=== PATIENT | male | born 1960 | race Two or more races ===

== ENCOUNTER 2024-07-07 16:49 | Inpatient (IN) | payer MEDICAID, SELFPAY ==
[2024-07-07] VITALS (11 sets, daily range): BP systolic 115–155; BP diastolic 63–107; PULSE 95–127; RESP 14–95; TEMP 36.6–37.1; O2SAT 94–98; BMI 21.1
--- NOTE | 2024-07-07 17:05 | EDNOTE_ITS ---
ED GI Bleed RME/HPI General Chief complaint: GI Bleed Stated complaint: RECTAL BLEED Time Seen by Provider: 07/07/24 18:21 Arrival date/time: 07/07/24 16:49 Limitations: no limitations RME / HPI RME / HPI Narrative: DR. WEAVER MAIN ED EVALUATION: 64 year old male with past medical history significant for hepatitis C complicated with liver cirrhosis, history of previous GI bleed in the setting of esophageal varices status post ligation, portal HTN, chronic thrombocytopenia, acute blood loss anemia 2/2 UGIB, gastritis, hemorrhoids, DM2, hypertension, and hyperlipidemia presents to the Emergency Department with complaint of vomiting blood since 4 PM today. Symptoms are severe. No other symptoms reported at this time. Related Data Home Medications ?Medication ?Instructions ?Recorded ?Confirmed metformin 500 mg tablet 500 mg PO BIDWMEAL 05/12/21 05/12/21 sitagliptin phosphate 100 mg 100 mg PO QDAY 05/12/21 0 05/12/21 tablet (Januvia) Previous Rx's ?Medication ?Instructions ?Recorded metoprolol tartrate 25 mg tablet 12.5 mg (1/2 x 25 mg) PO BID #20 04/05/19 tabs ondansetron HCl 4 mg tablet 4 mg PO QID PRN nausea and 04/05/19 (Zofran) vomiting #14 tabs lactulose 10 gram/15 mL oral 20 g (30 mL) PO BID #946 mL 05/16/21 solution gabapentin 300 mg capsule 300 mg PO TID #30 caps 08/31 ciprofloxacin HCl 500 mg tablet 500 mg PO BID #14 tabs 11/30/23 (Cipro) dicyclomine 20 mg tablet 20 mg PO TID PRN abdominal p ain 11/30/23 #20 tabs Allergies Allergy/AdvReac Type Severity Reaction Status Date / Time No Known Allergies Allergy Unknown Verified 07/07/24 16:54 Review of Systems Review of Systems Systems Reviewed: All systems reviewed, normal except as documented Narrative Review of Systems: GEN: No fever, no chills, no weight loss EYES: No discharge, no visual changes, no pain HEENT: No ear pain, no congestion, no sore throat PULM: No shortness of breath, no cough, no congestion CV: No chest pain, no dyspnea on exertion, no palpitations GI: No nausea, + vomiting blood, no diarrhea, no pain, no constipation : No frequency, no urgency and no dysuria MUSC/SKEL: No joint pain, no back pain SKIN: No rash PSYCH: No hallucinations, no depression HEME/LYMPH: No easy bleeding or bruising tendencies NEURO: No weakness, no headache Past Medical History Past Medical History CARDIAC: Positive Hypercholesterolemia and Hypertension GASTROINTESTINAL: Positive Gastrointestinal Disorders, Cirrhosis, Esophageal Varices and Ulcerative Colitis GENITOURINARY: Positive Genitourinary Disorders MUSCULOSKELETAL: Positive Musculoskeletal Disorders and Arthritis ENDOCRINE: Positive Endocrine Disorders and Diabetes Mellitus Type 2 HEMATOLOGIC: Positive Blood Disorders and Anemia Family History FAMILY HISTORY: Positive Family Cardiac Disorders and Family Anesthesia Reaction Surgical History SURGICAL: Positive Abdominal Surgery and Bowel Surgery Social History SMOKING STATUS: Never smoker SECOND HAND EXPOSURE: No SUBSTANCE USE: does not use (Denied) ED Exam General Limitations: Present no limitations General appearance: Present alert and in no apparent distress Head Head exam: Present atraumatic, normocephalic and normal inspection Eye Eye exam: Present normal appearance, PERRL and EOMI ENT ENT exam: Present normal exam, normal oropharynx and mucous membranes moist Neck Neck exam: Present normal inspection, full ROM and trachea midline Chest Chest inspection: Present normal inspection and symmetric chest wall rise Respiratory Respiratory exam: Present normal lung sounds bilaterally Cardiovascular Cardiovascular exam: Present regular rate, normal rhythm and normal heart sounds Abdominal Exam Abdominal exam: Present soft, normal bowel sounds and scar (vertical scar in the mid abdomen) Extremities Exam Extremities exam: Present normal inspection and full ROM Back Exam Back exam: Present normal inspection and full ROM Neurological Exam Neurological exam: Present alert, oriented X3 and CN II-XII intact Psychiatric Psychiatric exam: Present normal affect and normal mood Skin Skin exam: Present warm, dry, intact and normal color Course Quality Measures none Orders Category Date Time Status Bedside Blood Glucose Q6HR Care 07/07/24 19:[address] Screening NOW Care 07/07/24 17:09 Active Geothermal Electrical Engineer STAT Care 07/07/24 17:06 Active Continuous Pulse Oximetry STAT Care 07/07/24 17:07 Completed EKG (ED ONLY) *Do not use* NOW Care 07/07/24 17:42 Completed Insert IV STAT Care 07/07/24 17:06 Active Insert NG / OG tube NOW Care 07/07/24 17:05 Active NPO NOW Care 07/07/24 20:37 Active NPO STAT Care 07/07/24 17:07 Active Occult Blood,Stool (Nursing) NEEDED Care 07/07/24 17:05 Active Orthostatic Vitals NOW Care 07/07/24 17:05 Active Transfuse,blood/blood products NEEDED Care 07/07/24 17:10 Active Transfuse,blood/blood products NOW Care 07/07/24 19:51 Active Urinary Catheter STAT Care 07/07/24 17:06 Active Vital Signs, Non-Routine Q30M Care 07/07/24 17:15 Ordered Consult to Gastroenterology Stat Cons 07/07/24 17:09 Ordered Diet NPO (NOW) Diet 07/07/24 20:[address] abdomen pelvis wo/w con Stat Exams 07/07/24 17:09 Completed CXR [XR chest 1V post procedure] Stat Exams 07/07/24 18:29 Completed EKG (ED Only) Stat Exams 07/07/24 17:42 Draft Ammonia Stat Lab 07/07/24 17:20 Completed Amylase Stat Lab 07/07/24 17:20 Completed Arterial Blood Gas Stat Lab 07/07/24 17:40 Completed CBC Stat Lab 07/07/24 17:20 Completed Comprehensive Metabolic Panel Stat Lab 07/07/24 17:20 Completed Lipase Stat Lab 07/07/24 17:20 Completed Magnesium Stat Lab 07/07/24 17:20 Completed Partial Thromboplastin Time Stat Lab 07/07/24 17:20 Completed Prothrombin Time with INR Stat Lab 07/07/24 17:20 Completed Red Blood Cells Stat Lab 07/07/24 17:20 Completed Troponin I Stat Lab 07/07/24 17:20 Completed Type and Screen Stat Lab 07/07/24 17:20 Completed Urinalysis Stat Lab 07/07/24 19:13 Completed Dextrose 50% Syr [D50w Syringe Abboject] Med 07/07/24 19:40 Active 25 ml IV Q15MIN PRN Dextrose 50% Syr [D50w Syringe Abboject] Med 07/07/24 19:40 Active 50 ml IV Q15MIN PRN Famotidine Inj [Pepcid Inj] Med 07/07/24 17:05 Discontinued 20 mg IV X1 ONE Folic Acid Inj Med 07/07/24 20:25 Discontinued 1 mg IVP X1 ONE Glucagon Inj Med 07/07/24 19:40 Active 1 mg IM Q15MIN PRN HYDROmorphone INJ [Dilaudid Inj] Med 07/07/24 18:14 Discontinued 0.5 mg IVP X1 ONE INSULIN LISPRO (AdmeLOG) [HumaLOG] Med 07/07/24 19:45 Active See Protocol SC Q6H Magnesium Sulfate 2 GM Ivpb [Magnesium Sulfate Ivpb] Med 07/07/24 19:25 Discontinued 2 gm in 50 ml IV X1 Octreotide Acet Inj [SandoSTATIN Inj] Med 07/07/24 17:05 Discontinued 50 mcg IV X1 ONE Ondansetron Inj [Zofran Inj] Med 07/07/24 17:13 Discontinued 4 mg IV X1 ONE Pantoprazole Inj [Protonix Inj] Med 07/07/24 17:05 Discontinued 80 mg IVP X1 ONE Phytonadione Inj [Vitamin K Inj] Med 07/07/24 17:05 Discontinued 10 mg IV X1 ONE Phytonadione Inj [Vitamin K Inj] 10 mg Med 07/07/24 17:30 Discontinued Sodium Chloride 0.9% [Ns] 50 ml IV X1 Sodium Chloride 0.9% 1000 ml [Ns] 1,000 ml Med 07/07/24 17:05 Discontinued IV 100 mls/hr Sodium Chloride 0.9% [Ns] 100 ml Med 07/07/24 17:13 Active Octreotide Acet Inj [SandoSTATIN Inj] 1,000 mcg IV 50 mcg/hr Thiamine Inj [Vitamin B-1 Inj] Med 07/07/24 20:25 Discontinued 100 mg IVP X1 ONE cefTRIAXone [Rocephin] 2 gm Med 07/07/24 17:15 Discontinued SODIUM CHLORIDE 0.9% (Popper) [Ns 0.9% (P)] 50 ml IV X1 Reevaluation(s) Reevaluation #1: Patient stable now and not vomiting blood at this time. Time: 17:30 Vital Signs Vital signs: Vital Signs Temperature 98.3 F 07/07/24 17:05 Pulse Rate 127 H 07/07/24 17:05 Respiratory Rate 19 07/07/24 17:05 Blood Pressure 155/107 H 07/07/24 17:05 Pulse Oximetry (%) 94 L 07/07/24 17:05 Oxygen Delivery Method Room Air 07/07/24 17:05 GI Bleed MDM Narrative MDM Narrative:: I, Melissa Hill am scribing for and in the presence of Dr. Weaver. Patient data External records reviewed:: [facility] previous records (Reviewed last admission discharge dated 05/16/21, patient admitted for the following: Acute gastrointestinal bleeding) Clinical information provided by:: patient Social determinants that could affect healthcare access:: none (denies) Patient has the following chronic illnesses:: Hepatitis C complicated with liver cirrhosis, history of previous GI bleed in the setting of esophageal varices status post ligation, portal HTN, chronic thrombocytopenia, acute blood loss anemia 2/2 UGIB, gastritis, hemorrhoids, DM2, hypertension, and hyperlipidemia. How is presenting disease/condition affected by chronic disease/condition?: caused by Evaluation data The following diagnostics were reviewed and interpreted by me:: lab results and radiology exam(s) Lab and/or radiology exams considered but not ordered:: none Interpretation Summary: Pending diagnostic tests. Medications / Prescriptions Medications or Prescriptions considered but not ordered:: none Medication administrations:: Medication Administration History Acetaminophen (Acetaminophen 325 Mg Tablet) 650 mg PO Q6H PRN PRN Reason: PAIN OR FEVER > 101 Stop: 08/06/24 21:48 Dextrose (Dextrose 50%-Water Inj 50 Ml Syringe) 25 ml IV Q15MIN PRN PRN Reason: BG 50-70 responsive npo pt Stop: 08/06/24 19:39 Dextrose (Dextrose 50%-Water Inj 50 Ml Syringe) 50 ml IV Q15MIN PRN PRN Reason: BG <50 OR BG <70 & pt unresponsive Stop: 08/06/24 19:39 Dextrose (Dextrose 50%-Water Inj 50 Ml Syringe) 25 ml IV Q15MIN PRN PRN Reason: BG 50-70 responsive npo pt Stop: 08/06/24 21:48 Dextrose (Dextrose 50%-Water Inj 50 Ml Syringe) 50 ml IV Q15MIN PRN PRN Reason: BG <50 OR BG <70 & pt unresponsive Stop: 08/06/24 21:48 Glucagon (Glucagon Inj 1 Mg Vial) 1 mg IM Q15MIN PRN PRN Reason: BG <70, and no IV access Glucagon (Glucagon Inj 1 Mg Vial) 1 mg IM Q15MIN PRN PRN Reason: BG <70, and no IV access Octreotide Acetate 1,000 mcg/ (Sodium Chloride) 102 mls @ 5.1 mls/hr IV .Q20H ONE; Protocol Stop: 07/08/24 13:12 Last Admin: 07/07/24 17:30 Dose: 50 mcg/hr, 5.1 mls/hr Documented By: ALEXANDREA Insulin Human Lispro (Insulin Lispro (Admelog) 1 Unit/0.01 Ml Unit) 0 unit SC Q6H JEAN; Protocol Stop: 08/06/24 19:44 Last Admin: 07/07/24 20:07 Dose: 2 unit Documented By: ANAYA Co-signed By: BD Ondansetron HCl (Ondansetron Inj 2 Mg/Ml Inj 2 Ml) 4 mg IV Q6H PRN; Protocol PRN Reason: NAUSEA OR VOMITING Stop: 08/06/24 21:48 Pantoprazole Sodium (Pantoprazole Inj 40 Mg Vial) 40 mg IVP BID JEAN Stop: 08/06/24 21:59 Last Admin: 07/08/24 00:00 Dose: 40 mg Documented By: CM Discontinued Medications Famotidine (Famotidine Inj 10 Mg/Ml Vial 2 Ml) 20 mg IV X1 ONE Stop: 07/07/24 17:06 Last Admin: 07/07/24 17:26 Dose: 20 mg Documented By: ALEXANDREA Folic Acid (Folic Acid Inj 1 Mg/0.2 Ml) 1 mg IVP X1 ONE Stop: 07/07/24 20:26 Last Admin: 07/07/24 20:57 Dose: 1 mg Documented By: ANAYA Hydromorphone HCl (Hydromorphone Inj 2 Mg/Ml Vial) 0.5 mg IVP X1 ONE Stop: 07/07/24 18:15 Last Admin: 07/07/24 18:42 Dose: 0.5 mg Documented By: RICARDO Sodium Chloride (Ns) 1,000 mls @ 100 mls/hr IV .Q10H ONE Stop: 07/08/24 03:04 Last Admin: 07/07/24 17:34 Dose: 100 mls/hr Documented By: ALEXANDREA Ceftriaxone Sodium 2 gm/ (Sodium Chloride) 50 mls @ 100 mls/hr IV X1 ONE Stop: 07/07/24 17:44 Last Infusion: 07/07/24 18:10 Dose: Infused Documented By: Admin: 07/07/24 17:34 Dose: 100 mls/hr Documented By: ALEXANDREA Phytonadione 10 mg/ Sodium (Chloride) 51 mls @ 153 mls/hr IV X1 ONE Stop: 07/07/24 17:49 Last Infusion: 07/07/24 19:07 Dose: Infused Documented By: Admin: 07/07/24 18:42 Dose: 153 mls/hr Documented By: RD Magnesium Sulfate (Magnesium Sulfate Ivpb) 2 gm in 50 mls @ 25 mls/hr IV X1 ONE Stop: 07/07/24 21:24 Last Infusion: 07/07/24 22:07 Dose: Infused Documented By: Admin: 07/07/24 20:07 Dose: 25 mls/hr Documented By: EF Octreotide Acetate (Octreotide Acet Inj 50 Mcg/Ml Vial) 50 mcg IV X1 ONE Stop: 07/07/24 17:06 Last Admin: 07/07/24 17:29 Dose: 50 mcg Documented By: GM Ondansetron HCl (Ondansetron Inj 2 Mg/Ml Inj 2 Ml) 4 mg IV X1 ONE; Protocol Stop: 07/07/24 17:14 Last Admin: 07/07/24 17:22 Dose: 4 mg Documented By: GM Pantoprazole Sodium (Pantoprazole Inj 40 Mg Vial) 80 mg IVP X1 ONE Stop: 07/07/24 17:06 Last Admin: 07/07/24 17:28 Dose: 80 mg Documented By: GM Phytonadione (Phytonadione Inj 10 Mg/Ml Amp) 10 mg IV X1 ONE Stop: 07/07/24 17:06 Last Admin: 07/07/24 17:30 Dose: 10 mg Documented By: GM Thiamine HCl (Thiamine Inj 100 Mg/Ml Vial 2 Ml) 100 mg IVP X1 ONE Stop: 07/07/24 20:26 Last Admin: 07/07/24 20:57 Dose: 100 mg Documented By: EF see above if any Consultations Consultation(s) initiated? (list below): No Diagnosis GI bleed differential diagnosis: esophageal varices, gastritis, Upper gastrointestinal hemorrhage and other (gastritis, peptic ulcer disease) Most likely diagnosis given after review of the tests above:: No official diagnoses at this time, still pending diagnostic tests. Patient signout to the night order selector provider. Admission Indicated Admission indicated?: indicated Explain why admission is indicated or not indicated:: No final disposition plan at this time, still pending diagnostic tests. Patient signout to the night order selector provider. Admission Request Was there a request for admission?: No Disposition Plan Disposition Plan: other (specify) (Patient signout to the night order selector provider. ) Discharge Plan Plan Patient Disposition: Admit Acute Care w/in Hospital Problem List Clinical Impression: Hematemesis, Cirrhosis, Bleeding esophageal varices, Hyperammonemia
--- NOTE | 2024-07-07 17:09 | XR_ITS ---
Examination: CT abdomen, without intravenous contrast. CT pelvis, without intravenous contrast. CT abdomen, with intravenous contrast. CT pelvis, with intravenous contrast. 2-D sagittal coronal reconstructions. Date and time of exam:July 07, 2024, 1942 hours Comparison November 30, 2023 INDICATIONS: Coughing up blood today rectal bleeding CTDI: vol (mGy) 18.8 DLP: (mGycm) 817 Technique: Multiple 3.0 axial images of the abdomen and pelvis without intravenous contrast, 3.0 mm slice thickness. Multiple 3.0 postcontrast images abdomen and pelvis also obtained, post intravenous injection 60 cc Isovue 370 2-D sagittal and coronal reconstructions. Low dose protocols were performed. One or more of the following dose reduction techniques were used; automated exposure control, adjustment of the mA and/or KV according to patient size, use of iterative reconstruction technique. Findings: Esophageal varices Blebs in the lower lung zone with dilated bronchi Cirrhosis, low-density areas in the liver are again depicted, the largest in the right lobe 21 mm Significant splenomegaly Tiny calcification in the gallbladder wall Gastric mucosal thickening Perigastric varices Mild ascites No hydronephrosis Periaortic and mesenteric lymphadenopathy Normal appendix No bowel obstruction Diffuse thickening colonic wall and diffuse thickening small bowel loops No bladder mass Fat-containing inguinal hernias Prominent osteopenia IMPRESSION: Cirrhosis Mild ascites Significant splenomegaly Esophageal and perigastric varices Recommend hepatobiliary sonography follow-up Gastritis pattern Hepatic colopathy, enteropathy
[2024-07-07] MEDS: ONDANSETRON INJ 2 MG/ML INJ 2 ML 4 MG IV (17:22)
[2024-07-07] MEDS: FAMOTIDINE INJ 10 MG/ML VIAL 2 ML 20 MG IV (17:26)
[2024-07-07] MEDS: PANTOPRAZOLE INJ 40 MG VIAL 80 MG IVP (17:28)
[2024-07-07] MEDS: OCTREOTIDE ACET INJ 50 mCg/ML VIAL IV (17:29)
[2024-07-07] MEDS: PHYTONADIONE INJ 10 MG/ML AMP IV (17:30)
[2024-07-07] MEDS: OCTREOTIDE ACET INJ 1,000 MCG in SODIUM CHLORIDE 0.9% 100 ML 5.1 MCG IV (17:30)
[2024-07-07] MEDS: SODIUM CHLORIDE 0.9% 1000 ML 1,000 ML 100 ML IV (17:34)
[2024-07-07] MEDS: cefTRIAXone 2 GM in SODIUM CHLORIDE 0.9% (Popper) 50 ML IV (17:34)
--- NOTE | 2024-07-07 17:42 | EKG_ITS ---
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
[2024-07-07 17:46] LABS: Basophils % (Auto) 0 % (0-2.5); Eosinophils # (Auto) 0.1 Thou/mm3 (0.0-0.5); Eosinophils % (Auto) 1 % (0-10); Hemoglobin 11.3 g/dL (13.5-16.0); Immature Granulocytes % (Auto) 0 % (0-0); Immature Granulocytes Auto 0.03 Thou/mm3 (0.00-0.00); Lymphocytes % (Auto) 19 % (10-50); Mean Corpuscular HGB Conc 35.3 g/dl (31.0-37.0); Mean Corpuscular Hemoglobin 31.5 pg (25.0-35.0); Mean Corpuscular Volume 89 fL (80-100); Monocytes # (Auto) 0.8 Thou/mm3 (0.0-0.8); Monocytes % (Auto) 8 % (0-12); Neutrophils # (Auto) 7.5 Thou/mm3 (1.8-7.7); Neutrophils % (Auto) 72 % (37-80); Nucleated Red Blood Cell % 0 /100 WBC (0); Platelet Count 80 Thou/mm3 (140-440); RDW Standard Deviation 42.4 fL (35.1-43.9); Red Blood Count 3.59 Miln/mm3 (4.50-5.90); White Blood Count 10.4 Thou/mm3 (3.8-10.6)
[2024-07-07 17:47] LABS: Base Excess 0 (-3-3); HCO3 25 mEq/L (20-26); Inspired Oxygen, FIO2 21 %; O2 Saturation 96 % (91-98); PCO2 39 mmHg (32.0-48.0); PO2 75 mmHg (83-108)
[2024-07-07 17:48] LABS: Allen Test Performed/OK; Puncture Site Left Radial
[2024-07-07 18:03] LABS: INR 1.3 (0.9-1.3); Partial Thromboplastin Time 25.2 Seconds (22.0-36.0); Prothrombin Time 13.6 Seconds (9.0-12.2)
[2024-07-07 18:05] LABS: Alanine Aminotransferase 60 U/L (10-49); Albumin, Serum 3.4 gm/dL (3.4-4.8); Albumin/Globulin Ratio 0.9 (1.2-2.2); Alkaline Phosphatase 163 U/L (46-116); Ammonia 135 uMol/L (11-32); Amylase 269 U/L (30-118); Anion Gap 9 (7-16); Aspartate Amino Transferase 66 U/L (0-34); BUN/Creatinine Ratio 54 Ratio (12-20); Bilirubin,Total 1.2 mg/dL (0.3-1.2); Blood Urea Nitrogen 43 mg/dL (9-23); Calcium 8.2 mg/dL (8.3-10.6); Calcium (Corrected) 8.7 mg/dL (8.5-10.1); Carbon Dioxide 22.8 mMol/L (20.0-31.0); Chloride 103 mMol/L (98-107); Creatinine (Component) 0.8 mg/dL (0.6-1.3); Globulin 3.6 gm/dL (2.3-3.5); Glucose 277 mg/dL (74-106); Lipase 34 U/L (12-53); Magnesium 1.5 mg/dL (1.6-2.6); Osmolality,Calculated 290 (275-295); Potassium 4.5 mMol/L (3.4-5.1); Sodium 135 mMol/L (136-145); Troponin I < 0.002 ng/mL (0.0-0.045); eGFR > 60 See Note
--- NOTE | 2024-07-07 18:18 | EDNOTE_ITS ---
Emergency Room Addendum Addendum Narrative: 1800: Care assumed from Dr. Weaver the previous shift emergency physician. Past medical, surgical, social and family history reviewed. Vitals and home medications reviewed. Results and treatment plan discussed. I will assume the care of the patient at this time and will follow the patient, pending CT abdomen pelvis and work-up. Please refer to the emergency department record for history and examination from initial visit. EKG done at 1748, sinus tachycardia, rate of 116, normal axis, no ectopy, no acute ischemia, according to my interpretation. Post procedure (NG tube) CXR ordered. See Dr. Hernandez's addendum for the patient's history. CXR shows normal cardiac silhouette, normal sharp diaphragmatic edge, no infiltrates, normal costophrenic angles, NG tube in place, according to my interpretation. 2034: Dr. Hernandez, resident physician, discussed case with Dr. Rivera from Hospitalist service regarding admission. Discussed patients ED course, exam findings, labs, and radiology results. The Hospitalist agrees to accept the patient for admission. 2038: Dr. Hernandez discussed case with Dr. Sotomayor from GI regarding consultation. Discussed patients ED course, exam findings, labs, and radiology results. Agrees to consult. RADIOLOGY RESULTS: [facility] Report Signed Patient: YAYA JOHNSON Record#: [id number] Birthdate: 1960 Age/Sex: 64 / M Location: [facility] Attending Dr: Ordering Physician: Greg Leigh MD Date of Service: 07/07/24 Procedure(s): XR chest 1V post procedure Accession Number(s): [id number] cc: Sergey Simon MD; NO PRIMARY/FAMILY,PHYSICIAN; Greg Leigh MD~ Examination: AP chest single view TECHNIQUE: AP portable sitting chest single view Standing time: July 07, 2024 1844 hours INDICATIONS: Post orogastric tube placement. FINDINGS: Orogastric tube sidehole at the GE junction Normal heart size. Lungs are clear. IMPRESSION: Advance the orogastric tube 5 cm Dictated By: Sergey Simon MD Signed By: <Electronically signed by Sergey Simon MD in OV> 07/07/24 1858 [facility] Report Signed Patient: YAYA JOHNSON Record#: [id number] Birthdate: 1960 Age/Sex: 64 / M Location: [facility] Attending Dr: Ordering Physician: Dasia Weaver MD Date of Service: 07/07/24 Procedure(s): CT abdomen pelvis wo/w con Accession Number(s): [id number] cc: Dasia Weaver MD; Sergey Simon MD; NO PRIMARY/FAMILY,PHYSICIAN~ Examination: CT abdomen, without intravenous contrast. CT pelvis, without intravenous contrast. CT abdomen, with intravenous contrast. CT pelvis, with intravenous contrast. 2-D sagittal coronal reconstructions. Date and time of exam:July 07, 2024, 1942 hours Comparison November 30, 2023 INDICATIONS: Coughing up blood today rectal bleeding CTDI: vol (mGy) 18.8 DLP: (mGycm) 817 Technique: Multiple 3.0 axial images of the abdomen and pelvis without intravenous contrast, 3.0 mm slice thickness. Multiple 3.0 postcontrast images abdomen and pelvis also obtained, post intravenous injection 60 cc Isovue 370 2-D sagittal and coronal reconstructions. Low dose protocols were performed. One or more of the following dose reduction techniques were used; automated exposure control, adjustment of the mA and/or KV according to patient size, use of iterative reconstruction technique. Findings: Esophageal varices Blebs in the lower lung zone with dilated bronchi Cirrhosis, low-density areas in the liver are again depicted, the largest in the right lobe 21 mm Significant splenomegaly Tiny calcification in the gallbladder wall Gastric mucosal thickening Perigastric varices Mild ascites No hydronephrosis Periaortic and mesenteric lymphadenopathy Normal appendix No bowel obstruction Diffuse thickening colonic wall and diffuse thickening small bowel loops No bladder mass Fat-containing inguinal hernias Prominent osteopenia IMPRESSION: Cirrhosis Mild ascites Significant splenomegaly Esophageal and perigastric varices Recommend hepatobiliary sonography follow-up Gastritis pattern Hepatic colopathy, enteropathy Dictated By: Sergey Simon MD Signed By: <Electronically signed by Sergey Simon MD in OV> 07/07/242024
--- NOTE | 2024-07-07 18:29 | XR_ITS ---
Examination: AP chest single view TECHNIQUE: AP portable sitting chest single view Standing time: July 07, 2024 1844 hours INDICATIONS: Post orogastric tube placement. FINDINGS: Orogastric tube sidehole at the GE junction Normal heart size. Lungs are clear. IMPRESSION: Advance the orogastric tube 5 cm
[2024-07-07] MEDS: HYDROmorphone INJ 2 MG/ML VIAL 0.5 MG IVP (18:42)
[2024-07-07] MEDS: PHYTONADIONE INJ 10 MG in SODIUM CHLORIDE 0.9% 50 ML 153 MG IV (18:42)
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
[2024-07-07 19:42] LABS: Collection Type, Urine Catheter; WBC,Urine 0 /hpf (0-5)
[2024-07-07] MEDS: INSULIN LISPRO (AdmeLOG) 1 UNIT/0.01 ML UNIT SC (20:07)
[2024-07-07] MEDS: Magnesium Sulfate 2 GM Ivpb 2 GM/50 ML BAG IV (20:07)
[2024-07-07 20:15] LABS: Bilirubin,Urine Negative (Negative); Blood,Urine Negative (Negative); Clarity,Urine Clear (Clear/Hazy); Color,Urine Lt-Yellow (Lt Yel-Yel); Glucose, Urine 4+ (Negative); Ketones,Urine 1+ (Negative); Leukocyte Esterase,Urine Negative (Negative); Nitrite,Urine Negative (Negative); Protein,Urine Negative (Neg - Trace); RBC,Urine 4 /hpf (0-3); Specific Gravity,Urine 1.027 (1.001-1.035); Squamous Epithelial Cell,Urine < 1 /hpf (0-5); Urobilinogen,Urine Negative mg/dL (0.0-1.0)
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
[2024-07-07] MEDS: FOLIC ACID INJ 1 MG/0.2 ML IVP (20:57)
[2024-07-07] MEDS: THIAMINE INJ 100 MG/ML VIAL 2 ML IVP (20:57)
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
--- NOTE | 2024-07-07 23:50 | PD.IMCONS ---
HPI Data of Consult Requesting Physician: Lawrence Rivera MD Primary Care Provider: Physician No Primary/Family Consult Narrative Reason for consult: Melena, hematochezia History of present illness: 64 years of male evaluated at the request of the ER physician team for clinical presentation melena and hematochezia Patient does have a history of alcohol consumption in the past cc:: cc: Lawrence Rivera MD Review of Systems Review of Systems Systems Reviewed: All systems reviewed, normal except as documented Past Medical History Surgical History OTHER SURGICAL HX: Diabetes mellitus type 2 Meds Home Medications and Allergies Home Medications ?Medication ?Instructions ?Recorded ?Confirmed ?Type metformin 500 mg tablet 500 mg PO BIDWMEAL 05/12/21 07/08/24 History sitagliptin phosphate 100 mg 100 mg PO QDAY 05/12/21 07/08/24 History tablet (Januvia) diclofenac sodium 75 mg 75 mg PO Q12H PRN pain 07/08/24 07/08/24 History tablet,delayed release pantoprazole 40 mg tablet,delayed 40 mg PO QDAY 07/08/24 07/08/24 History release Allergies Allergy/AdvReac Type Severity Reaction Status Date / Time No Known Allergies Allergy Unknown Verified 07/07/24 16:54 Exam Vital Signs Temp Pulse Resp BP Pulse Ox O2 Del Method 98.3 F 99 17 118/78 96 Room Air 07/07/24 20:52 07/07/24 22:19 07/07/24 22:19 07/07/24 22:19 07/07/24 22:19 07/07/24 22:19 Constitutional Comments: Alert oriented Persian-speaking Routine Respiratory Exam Comments: Normal to auscultation Routine Abdominal Exam Comments: Soft nontender Results Labs 07/08/24 11:55 07/08/24 05:21 Labs: Short CBC 07/07/24 Range/Units 17:20 WBC 10.4 (3.8-10.6) Thou/mm3 Hgb 11.3 L (13.5-16.0) g/dL Hct 32.0 L (41.0-53.0) % Plt Count 80 L (140-440) Thou/mm3 BMP 07/07/24 17:20 Sodium 135 L Potassium 4.5 Chloride 103 Carbon Dioxide 22.8 BUN 43 H Creatinine 0.8 Glucose 277 H Calcium 8.2 L Cardiac Enzymes 07/07/24 Range/Units 17:20 Troponin I < 0.002 (0.0-0.045) ng/mL Liver Function 07/07/24 Range/Units 17:20 Total Bilirubin 1.2 (0.3-1.2) mg/dL AST 66 H (0-34) U/L ALT 60 H (10-49) U/L Alkaline Phosphatase 163 H (46-116) U/L Albumin 3.4 (3.4-4.8) gm/dL Urine 07/07/24 Range/Units 19:13 Urine Color Lt-Yellow (Lt Yel-Yel) Urine Clarity Clear (Clear/Hazy) Urine pH 6.0 (5.0-7.0) Ur Specific [place] 1.027 (1.001-1.035) Urine Protein Negative (Neg - Trace) Urine Glucose (UA) 4+ A (Negative) ABG Interpretation ABG results: 07/07/24 17:40 ABG pH 7.40 ABG pCO2 39 ABG pO2 75 L ABG HCO3 25 ABG O2 Saturation 96 ABG Base Excess 0 Assessment and Plan Additional Assessment & Plan Additional Plan: # Acute GI bleed in the setting of melena and hematochezia with backdrop of chronic liver disease secondary to previous consumption of alcohal Plan Serial CBC IV Protonix Octreotide 50 mcg IV push loading dose and then 50 mcg/h Consent obtained for fiberoptic esophagogastroduodenoscopy with possible therapeutic intervention possible biopsy under intravenous moderate sedation Thank you very much for the opportunity to participate in the care of this patient
[2024-07-08] VITALS (19 sets, daily range): BP systolic 106–152; BP diastolic 62–96; PULSE 66–981; RESP 12–96; TEMP 36.3–37.3; O2SAT 93–99; BMI 23.3
[2024-07-08 00:57] LABS: Basophils % (Auto) 0 % (0-2.5); Eosinophils % (Auto) 0 % (0-10); Hematocrit 31.6 % (41.0-53.0); Hemoglobin 11.3 g/dL (13.5-16.0); Immature Granulocytes % (Auto) 0 % (0-0); Immature Granulocytes Auto 0.04 Thou/mm3 (0.00-0.00); Lymphocytes # (Auto) 0.8 Thou/mm3 (1.0-4.8); Lymphocytes % (Auto) 8 % (10-50); Mean Corpuscular HGB Conc 35.8 g/dl (31.0-37.0); Mean Corpuscular Hemoglobin 31.5 pg (25.0-35.0); Mean Corpuscular Volume 88 fL (80-100); Monocytes % (Auto) 10 % (0-12); Neutrophils # (Auto) 8.1 Thou/mm3 (1.8-7.7); Neutrophils % (Auto) 81 % (37-80); Nucleated Red Blood Cell % 0 /100 WBC (0); RDW Standard Deviation 42.1 fL (35.1-43.9); Red Blood Count 3.59 Miln/mm3 (4.50-5.90)
[2024-07-08 01:28] LABS: Platelet Count 50 Thou/mm3 (140-440)
[2024-07-08 01:49] LABS: Slide Review Platelets confirmed
--- NOTE | 2024-07-08 05:34 | PC.NURSE ---
Notified Quresh that pt refusing NG tube and would like to have it taken out.
[2024-07-08 06:11] LABS: Basophils % (Auto) 0 % (0-2.5); Eosinophils % (Auto) 0 % (0-10); Hematocrit 29.3 % (41.0-53.0); Hemoglobin 10.6 g/dL (13.5-16.0); Immature Granulocytes % (Auto) 0 % (0-0); Immature Granulocytes Auto 0.03 Thou/mm3 (0.00-0.00); Lymphocytes # (Auto) 0.9 Thou/mm3 (1.0-4.8); Lymphocytes % (Auto) 11 % (10-50); Mean Corpuscular HGB Conc 36.2 g/dl (31.0-37.0); Mean Corpuscular Volume 89 fL (80-100); Monocytes # (Auto) 0.7 Thou/mm3 (0.0-0.8); Monocytes % (Auto) 9 % (0-12); Neutrophils # (Auto) 6.6 Thou/mm3 (1.8-7.7); Neutrophils % (Auto) 80 % (37-80); Nucleated Red Blood Cell % 0 /100 WBC (0); RDW Standard Deviation 43.5 fL (35.1-43.9); Red Blood Count 3.31 Miln/mm3 (4.50-5.90); White Blood Count 8.3 Thou/mm3 (3.8-10.6)
[2024-07-08 06:16] LABS: Platelet Count 48 Thou/mm3 (140-440)
[2024-07-08 06:18] LABS: INR 1.2 (0.9-1.3)
[2024-07-08 06:28] LABS: Alanine Aminotransferase 56 U/L (10-49); Albumin, Serum 2.9 gm/dL (3.4-4.8); Alkaline Phosphatase 113 U/L (46-116); Anion Gap 9 (7-16); Aspartate Amino Transferase 62 U/L (0-34); BUN/Creatinine Ratio 53 Ratio (12-20); Bilirubin,Direct 0.5 mg/dL (0.0-0.3); Bilirubin,Total 1.5 mg/dL (0.3-1.2); Blood Urea Nitrogen 37 mg/dL (9-23); Calcium 7.5 mg/dL (8.3-10.6); Cardiac Risk Estimate 2.2 RATIO (4.0-6.7); Chloride 108 mMol/L (98-107); Cholesterol 91 mg/dL (132-200); Creatinine (Component) 0.7 mg/dL (0.6-1.3); Estimated Creatinine Clearance 91.5 mL/min (>60); Glucose 185 mg/dL (74-106); HDL Cholesterol 41 mg/dL (40-60); LDL Cholesterol,Calculated 37 mg/dL (0-130); Magnesium 1.8 mg/dL (1.6-2.6); Osmolality,Calculated 294 (275-295); Phosphorous 2.7 mg/dL (2.4-5.1); Potassium 4.1 mMol/L (3.4-5.1); Sodium 141 mMol/L (136-145); Thyroid Stimulating Hormone 0.92 uIU/mL (0.55-4.78); Triglycerides 64 mg/dL (30-150); eGFR > 60 See Note
[2024-07-08 07:01] LABS: Slide Review Platelets confirmed
[2024-07-08] MEDS: PANTOPRAZOLE INJ 40 MG VIAL IVP ×3 (09:01→20:04)
[2024-07-08 09:03] LABS: Glucose Estimated Average 154 mg/dL (80-131)
--- NOTE | 2024-07-08 09:25 | PC.SS ---
Follow up note: GI work up. EGD pending.
[2024-07-08 12:16] LABS: Hematocrit 30.4 % (41.0-53.0); Hemoglobin 10.9 g/dL (13.5-16.0)
[2024-07-08] MEDS: OCTREOTIDE ACET INJ 1,000 MCG in SODIUM CHLORIDE 0.9% 100 ML 5.1 MCG IV (14:20)
--- NOTE | 2024-07-08 15:04 | PC.SS ---
SS met with patient regarding his d/c plan.? Pt is alert/oriented.? Pt was admitted for GI Bleed.? Pt confirmed demographic and contact information is correct on facesheet.? Pt resides alone.? Pt ambulates independently without assistance or DME.? Pt is ok with all ADLs.? Patient?s pharmacy of choice is [facility] [address] Pt named his sister, Gemini Villatoro medical decision maker if he is unable.? Patient?s choice is to return home upon d/c.? Pt states he is diabetic but does not have glucometer or test strips.? Pt states his sister will provide transportation. D/C plan:? Return home Next of Kin:? Gemini Villatoro, sister, phone# [phone] PCP:? Dr. Nguyen from [facility] Address:? Correct on facesheet
--- NOTE | 2024-07-08 17:14 | PD.RESPRO ---
Documentation for date of: 07/08/24 Subjective Subjective Interval history: Patient was seen and examined at bedside, patient denied any new symptoms. He reported that he still has some melena. Nurse reported that the patient had an episode of melena and reddish stool. Repeat H&H showed hemoglobin at 10.9. Vitally patient is stable with no changes. Lab showed blood sugar of 185, AST and ALT 62 and 56 respectively and ammonia level was 135. Patient was not started on lactulose as the patient does not have any hepatic encephalopathy symptoms. Overnight the patient was unable to tolerate the NG tube which was removed by the night team. Exam Vital Signs Temp Pulse Resp BP Pulse Ox O2 Del Method 98.0 F 87 25 H 106/62 98 Room Air 07/08/24 16:00 07/08/24 16:00 07/08/24 16:00 07/08/24 16:00 07/08/24 16:00 07/08/24 16:00 Narrative Exam GEN: AOx3, able to speak full sentences HEENT: NC/AC, PERRLA, oral mucosa moist, neck supple CVS: RRR, S1-S2 present, no murmurs appreciated RESP: CTAB GI: Midline surgical scar, soft,non distended, non tender, NBS MSK: able to move all 4 limbs, no lower extremity edema SKIN: warm and dry PHARMACY SERVICES REPRESENTATIVE: CN II-XII and Sensation grossly intact. No asterixis. Objective Labs 07/14/24 05:14 07/14/24 05:14 Labs: Laboratory Results - last 24 hr 07/07/24 07/07/24 07/07/24 17:20 17:40 19:13 WBC 10.4 RBC 3.59 L Hgb 11.3 L Hct 32.0 L MCV 89 MCH 31.5 MCHC 35.3 RDW Std Deviation 42.4 Plt Count 80 L Neut % (Auto) 72 Lymph % (Auto) 19 [place] % (Auto) 8 Eos % (Auto) 1 Baso % (Auto) 0 Neut # (Auto) 7.5 Lymph # (Auto) 2.0 [place] # (Auto) 0.8 Eos # (Auto) 0.1 Baso # (Auto) 0.0 Immature Gran # (Auto) 0.03 H Absolute Nucleated RBC 0.00 Immature Gran % 0 Nucleated RBC % 0 PT 13.6 H INR 1.3 APTT 25.2 Puncture Site Left Radial ABG pH 7.40 ABG pCO2 39 ABG pO2 75 L ABG HCO3 25 ABG O2 Saturation 96 ABG Base Excess 0 FiO2 21 Sodium 135 L Potassium 4.5 Chloride 103 Carbon Dioxide 22.8 Anion Gap 9 BUN 43 H Creatinine 0.8 Estim Creat Clear Calc 75.0 eGFR > 60 BUN/Creatinine Ratio 54 H Glucose [address] Glu mg/dL Hemoglobin A1c Calculated Osmolality 290 Calcium 8.2 L Corrected Calcium 8.7 Phosphorus Magnesium 1.5 L Total Bilirubin 1.2 Direct Bilirubin AST 66 H ALT 60 H Alkaline Phosphatase 163 H Ammonia 135 H* Troponin I < 0.002 Total Protein 7.0 Albumin 3.4 Globulin 3.6 H Albumin/Globulin Ratio 0.9 L Triglycerides Cholesterol LDL Cholesterol, Calc HDL Cholesterol Cholesterol/HDL Ratio Amylase 269 H Lipase 34 TSH Ur Collection Type Catheter Urine Color Lt-Yellow Urine Clarity Clear Urine pH 6.0 Ur Specific [place] 1.027 Urine Protein Negative Urine Glucose (UA) 4+ A Urine Ketones 1+ A Urine Blood Negative Urine Nitrite Negative Urine Bilirubin Negative Urine Urobilinogen (Auto) Negative Ur Leukocyte Esterase Negative Urine RBC 4 H Urine WBC 0 Ur Squamous Epith Cells < 1 Urine Bacteria None Misc Test Result Blood Type O Positive Antibody Screen NEGATIVE Crossmatch See Detail Blood Bank Wristband ID Yes 07/08/24 07/08/24 07/08/24 00:25 05:21 11:55 WBC 10.0 8.3 RBC 3.59 L 3.31 L Hgb 11.3 L 10.6 L 10.9 L Hct 31.6 L 29.3 L 30.4 L MCV 88 89 MCH 31.5 32.0 MCHC 35.8 36.2 RDW Std Deviation 42.1 43.5 Plt Count 50 L D 48 L Neut % (Auto) 81 H 80 Lymph % (Auto) 8 L 11 [place] % (Auto) 10 9 Eos % (Auto) 0 0 Baso % (Auto) 0 0 Neut # (Auto) 8.1 H 6.6 Lymph # (Auto) 0.8 L 0.9 L [place] # (Auto) 1.0 H 0.7 Eos # (Auto) 0.0 0.0 Baso # (Auto) 0.0 0.0 Immature Gran # (Auto) 0.04 H 0.03 H Absolute Nucleated RBC 0.00 0.00 Immature Gran % 0 0 Nucleated RBC % 0 0 PT 13.0 H INR 1.2 APTT Puncture Site ABG pH ABG pCO2 ABG pO2 ABG HCO3 ABG O2 Saturation ABG Base Excess FiO2 Sodium 141 Potassium 4.1 Chloride 108 H Carbon Dioxide 24.0 Anion Gap 9 BUN 37 H Creatinine 0.7 Estim Creat Clear Calc 91.5 eGFR > 60 BUN/Creatinine Ratio 53 H Glucose [address] Glu mg/dL 154 H Hemoglobin A1c 7.0 H Calculated Osmolality 294 Calcium 7.5 L Corrected Calcium Phosphorus 2.7 Magnesium 1.8 Total Bilirubin 1.5 H Direct Bilirubin 0.5 H AST 62 H ALT 56 H Alkaline Phosphatase 113 D Ammonia Troponin I Total Protein 6.0 Albumin 2.9 L D Globulin Albumin/Globulin Ratio Triglycerides 64 Cholesterol 91 L LDL Cholesterol, Calc 37 HDL Cholesterol 41 Cholesterol/HDL Ratio 2.2 L Amylase Lipase TSH 0.92 Ur Collection Type Urine Color Urine Clarity Urine pH Ur Specific [place] Urine Protein Urine Glucose (UA) Urine Ketones Urine Blood Urine Nitrite Urine Bilirubin Urine Urobilinogen (Auto) Ur Leukocyte Esterase Urine RBC Urine WBC Ur Squamous Epith Cells Urine Bacteria Misc Test Result Platelets confirmed Platelets confirmed Blood Type Antibody Screen Crossmatch Blood Bank Wristband ID ABG Interpretation ABG results: 07/07/24 17:40 ABG pH 7.40 ABG pCO2 39 ABG pO2 75 L ABG HCO3 25 ABG O2 Saturation 96 ABG Base Excess 0 Quality Measures Quality Measures none Advance care planning discussed with:: patient Assessment & Plan Assessment Current Active Medications: Generic Name Dose Route Start Last Admin Trade Name [place]iago PRN Reason Stop Dose Admin Acetaminophen 650 mg 07/07/24 21:49 Acetaminophen 325 Mg Tablet PO 08/06/24 21:48 Q6H PRN PAIN OR FEVER > 101 Dextrose 25 ml 07/07/24 19:40 Dextrose 50%-Water Inj 50 Ml Syringe IV 08/06/24 19:39 Q15MIN PRN BG 50-70 responsive npo pt Dextrose 50 ml 07/07/24 19:40 Dextrose 50%-Water Inj 50 Ml Syringe IV 08/06/24 19:39 Q15MIN PRN BG <50 OR BG <70 & pt unresponsive Dextrose 25 ml 07/07/24 21:49 Dextrose 50%-Water Inj 50 Ml Syringe IV 08/06/24 21:48 Q15MIN PRN BG 50-70 responsive npo pt Dextrose 50 ml 07/07/24 21:49 Dextrose 50%-Water Inj 50 Ml Syringe IV 08/06/24 21:48 Q15MIN PRN BG <50 OR BG <70 & pt unresponsive Glucagon 1 mg 07/07/24 19:40 Glucagon Inj 1 Mg Vial IM Q15MIN PRN BG <70, and no IV access Glucagon 1 mg 07/07/24 21:49 Glucagon Inj 1 Mg Vial IM Q15MIN PRN BG <70, and no IV access Ceftriaxone Sodium/Dextrose 1 gm in 50 mls @ 100 mls/hr 07/08/24 17:00 Rocephin/D5w 1gm Iv Premix IV 07/15/24 16:59 QDAY@1700 JEAN Octreotide Acetate 1,000 mcg/ 102 mls @ 5.1 mls/hr 07/08/24 13:50 07/08/24 14:20 Sodium Chloride IV 07/11/24 13:50 50 mcg/hr .Q20H JEAN 5.1 mls/hr Administration Protocol 50 MCG/HR Insulin Human Lispro 0 unit 07/08/24 12:00 07/08/24 12:22 Insulin Lispro (Admelog) 1 Unit/0.01 Ml Unit SC 08/07/24 11:59 Not Given Q6HR JEAN Protocol Ondansetron HCl 4 mg 07/07/24 21:49 Ondansetron Inj 2 Mg/Ml Inj 2 Ml IV 08/06/24 21:48 Q6H PRN NAUSEA OR VOMITING Protocol Pantoprazole Sodium 40 mg 07/07/24 22:00 07/08/24 09:01 Pantoprazole Inj 40 Mg Vial IVP 08/06/24 21:59 40 mg BID JEAN Administration Plan Summary: A 64-year-old male patient with past medical history of diabetes, cirrhosis secondary to hep C, history of laparotomy, was brought to the ED because of hematemesis and melena. Patient was admitted for management of acute upper and lower GI bleed. #Acute GI bleed DDx variceal bleed vs peptic ulcer disease Patient has history of cirrhosis and hepatitis C, noted distended varices on CT scan the patient also has history of taking diclofenac for the past couple of weeks for pain. Patient has prior history of variceal banding couple years back. 1 PRBC ordered by ER. Plan ? Repeat H&H ? Keep n.p.o. ? Continue IV octreotide gtt. ? Protonix 40 mg twice daily ? IV ceftriaxone 1 g daily for SBP prophylaxis. ? GI consult Dr. Sotomayor is placed, patient recommendations patient will undergo EGD today #History of decompensated cirrhosis Patient has history of hepatitis C virus, reportedly partially treated, features of decompensated cirrhosis such as, Ascites splenomegaly and thrombocytopenia. Despite elevated serum ammonia levels patient is A&O x 3. ? IV ceftriaxone for SBP prophylaxis ? Rifaximin 550 mg p.o. twice daily ? Will hold on the lactulose as of now as the patient did not show any signs of asterixis or hepatic encephalopathy ? Holding off on spironolactone and Lasix in the setting of acute GI bleed, will consider resuming after EGD. #Acute anemia Likely blood loss anemia in the setting of GI bleed Plan ?posttransfusion H&H, keep hemoglobin more than 7, transfuse if needed. #Type 2 diabetes mellitus, patient takes metformin despite cirrhosis and Januvia. ? Holding oral hypoglycemics, ? Insulin sliding scale every 6 hours ? Follow A1c ? Currently patient n.p.o. in anticipation of EGD today #History of hypertension Holding home blood pressure medications due to concurrent GI bleed anticipate hemorrhagic shock Plan ?Will continue to monitor blood pressure at, resume home blood pressure medications if needed. Hospital Maintenance: FEN: N.p.o. DVT ppx: SCD, GI ppx: Protonix IV lines: PIV [place]: None Code status: Full code Dispo: Telemetry - Patient's plan and care discussed with my attending, Dr. Ashok Romero MD Internal Medicine PGY-2 Attending Provider Attestation/Addendum I have examined the patient, reviewed labs and imaging findings, discussed the case with the resident(s), and reviewed entered orders. I agree with the plan of care as outlined in this note, with these additional summaries/recommendations: Patient seen at bedside. Patient admitted for GI bleed and known cirrhosis. Continue octreotide, PPI, IV Rocephin and NPO. Gastroenterology following with plans for EGD today. Patient had large dark brown bowel movement this morning per nurse and we will repeat H&H. Transfuse for hemoglobin less than 7. Patient also noted to have impressively elevated pneumonia on admission although was not altered. Patient is currently n.p.o. and we will resume lactulose and rifaximin this evening. Outpatient follow-up for cirrhosis and still recommend patient receives antiviral therapy for hepatitis C. Continue insulin sliding scale for diabetes mellitus type 2. Hold all chemical anticoagulation. Dr. Ashok MD
--- NOTE | 2024-07-08 18:20 | SUR.PHASEI ---
pt received from OR in recovery bay 1. pt asleep but responds to voice, breathing unlabored on room air. v/s stable. report received from Latrice Owen.
--- NOTE | 2024-07-08 19:10 | SUR.PHASEI ---
pt asleep but responds to voice, breathing unlabored on room air. v/s stable. report called to Eze Owen. pt will be transferred to room at this time.
--- NOTE | 2024-07-08 19:17 | PC.NURSE ---
patient arrived to tele floor from [facility] at 191, vital signs are stable, patient is in no distress, respiratory equal and unlabored.
[2024-07-08] MEDS: cefTRIAXone/D5w 1gm IV premix 1 GM/50 ML BAG IV (19:28)
[2024-07-08] MEDS: INSULIN LISPRO (AdmeLOG) 1 UNIT/0.01 ML UNIT SC (23:51)
[2024-07-09] VITALS (10 sets, daily range): BP systolic 104–130; BP diastolic 63–77; PULSE 65–84; RESP 12–98; TEMP 36.2–36.9; O2SAT 95–98; BMI 21.9
[2024-07-09 07:35] LABS: Basophils % (Auto) 0 % (0-2.5); Eosinophils # (Auto) 0.2 Thou/mm3 (0.0-0.5); Eosinophils % (Auto) 3 % (0-10); Hematocrit 28.8 % (41.0-53.0); Hemoglobin 10.3 g/dL (13.5-16.0); Immature Granulocytes % (Auto) 0 % (0-0); Immature Granulocytes Auto 0.02 Thou/mm3 (0.00-0.00); Lymphocytes # (Auto) 0.9 Thou/mm3 (1.0-4.8); Lymphocytes % (Auto) 16 % (10-50); Mean Corpuscular HGB Conc 35.8 g/dl (31.0-37.0); Mean Corpuscular Hemoglobin 31.8 pg (25.0-35.0); Mean Corpuscular Volume 89 fL (80-100); Monocytes # (Auto) 0.6 Thou/mm3 (0.0-0.8); Monocytes % (Auto) 11 % (0-12); Neutrophils # (Auto) 3.9 Thou/mm3 (1.8-7.7); Neutrophils % (Auto) 69 % (37-80); Nucleated Red Blood Cell % 0 /100 WBC (0); RDW Standard Deviation 44.5 fL (35.1-43.9); Red Blood Count 3.24 Miln/mm3 (4.50-5.90); White Blood Count 5.6 Thou/mm3 (3.8-10.6)
[2024-07-09 07:40] LABS: Platelet Count 50 Thou/mm3 (140-440)
[2024-07-09 07:41] LABS: Slide Review Platelets confirmed
[2024-07-09 07:46] LABS: Alanine Aminotransferase 68 U/L (10-49); Alkaline Phosphatase 93 U/L (46-116); Anion Gap 8 (7-16); Aspartate Amino Transferase 80 U/L (0-34); BUN/Creatinine Ratio 43 Ratio (12-20); Bilirubin,Direct 0.5 mg/dL (0.0-0.3); Bilirubin,Total 1.1 mg/dL (0.3-1.2); Blood Urea Nitrogen 34 mg/dL (9-23); Calcium 7.5 mg/dL (8.3-10.6); Carbon Dioxide 25.8 mMol/L (20.0-31.0); Chloride 107 mMol/L (98-107); Creatinine (Component) 0.8 mg/dL (0.6-1.3); Estimated Creatinine Clearance 77.1 mL/min (>60); Glucose 133 mg/dL (74-106); Magnesium 1.7 mg/dL (1.6-2.6); Osmolality,Calculated 290 (275-295); Phosphorous 2.5 mg/dL (2.4-5.1); Potassium 3.8 mMol/L (3.4-5.1); Sodium 141 mMol/L (136-145); Total Protein 6.2 gm/dL (5.7-8.2); eGFR > 60 See Note
[2024-07-09 08:32] LABS: INR 1.1 (0.9-1.3); Prothrombin Time 12.4 Seconds (9.0-12.2)
[2024-07-09] MEDS: PANTOPRAZOLE INJ 40 MG VIAL IVP (09:19)
[2024-07-09] MEDS: OCTREOTIDE ACET INJ 1,000 MCG in SODIUM CHLORIDE 0.9% 100 ML 5.1 MCG IV (09:19)
[2024-07-09] MEDS: INSULIN LISPRO (AdmeLOG) 1 UNIT/0.01 ML UNIT SC (11:36)
--- NOTE | 2024-07-09 13:04 | ESPR_ITS ---
Documentation for date of: 07/09/24 Subjective Subjective Interval history: Patient was seen and examined at bedside, reported mild lower abdominal pain, has been going on for the past 2 days however it worsens today he feels the pain is 5 out of 10. Patient reported today he had a bowel movement which had tinge of blood. Review of his CT scan showed copy. Will reach out to Dr. Sotomayor for further recommendations. Yesterday had an EGD which showed esophageal varices and underwent band ligation. The GI specialist Dr. Sotomayor recommended to continue patient on octreotide drip for 5 days in which it will finish on 11 Jul 2024. His labs showed stable hemoglobin level of 10, however his AST and ALT still elevated. Patient has positive hep C we will start the patient to follow- up in outpatient settings regarding hepatitis C treatment. Exam Vital Signs Temp Pulse Resp BP Pulse Ox O2 Del Method O2 Flow Rate 97.3 F 82 19 109/77 97 Room Air 3 07/09/24 12:00 07/09/24 12:00 07/09/24 12:07/09/24 12:07/09/24 12:07/09/24 12:07/08/24 18:15 Narrative Exam GEN: AOx3, able to speak full sentences HEENT: NC/AC, PERRLA, oral mucosa moist, neck supple CVS: RRR, S1-S2 present, no murmurs appreciated RESP: CTAB GI: Midline surgical scar,lower abdominal tenderness, on the right and left iliac fossa's. 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 No asterixis. Objective Labs 07/09/24 06:46 07/09/24 06:46 Labs: Laboratory Results - last 24 hr 07/09/24 06:46 WBC 5.6 RBC 3.24 L Hgb 10.3 L Hct 28.8 L MCV 89 MCH 31.8 MCHC 35.8 RDW Std Deviation 44.5 H Plt Count 50 L Neut % (Auto) 69 Lymph % (Auto) 16 [place] % (Auto) 11 Eos % (Auto) 3 Baso % (Auto) 0 Neut # (Auto) 3.9 Lymph # (Auto) 0.9 L [place] # (Auto) 0.6 Eos # (Auto) 0.2 Baso # (Auto) 0.0 Immature Gran # (Auto) 0.02 H Absolute Nucleated RBC 0.00 Immature Gran % 0 Nucleated RBC % 0 PT 12.4 H INR 1.1 Sodium 141 Potassium 3.8 Chloride 107 Carbon Dioxide 25.8 Anion Gap 8 BUN 34 H Creatinine 0.8 Estim Creat Clear Calc 77.1 eGFR > 60 BUN/Creatinine Ratio 43 H Glucose 133 H D Calculated Osmolality 290 Calcium 7.5 L Phosphorus 2.5 Magnesium 1.7 Total Bilirubin 1.1 Direct Bilirubin 0.5 H AST 80 H ALT 68 H Alkaline Phosphatase 93 D Total Protein 6.2 Albumin 3.0 L Misc Test Result Platelets confirmed ABG Interpretation ABG results: 07/07/24 17:40 ABG pH 7.40 ABG pCO2 39 ABG pO2 75 L ABG HCO3 25 ABG O2 Saturation 96 ABG Base Excess 0 Quality Measures Quality Measures none Advance care planning discussed with:: patient Assessment & Plan Assessment Current Active Medications: Generic Name Dose Route Start Last Admin Trade Name Freq PRN Reason Stop Dose Admin Acetaminophen 650 mg 07/07/24 21:49 Acetaminophen 325 Mg Tablet PO 08/06/24 21:48 Q6H PRN PAIN OR FEVER > 101 Dextrose 25 ml 07/07/24 21:49 Dextrose 50%-Water Inj 50 Ml Syringe IV 08/06/24 21:48 Q15MIN PRN BG 50-70 responsive npo pt Dextrose 50 ml 07/07/24 21:49 Dextrose 50%-Water Inj 50 Ml Syringe IV 08/06/24 21:48 Q15MIN PRN BG <50 OR BG <70 & pt unresponsive Glucagon 1 mg 07/07/24 21:49 Glucagon Inj 1 Mg Vial IM Q15MIN PRN BG <70, and no IV access Ceftriaxone Sodium/Dextrose 1 gm in 50 mls @ 100 mls/hr 07/08/24 17:00 07/08/24 19:28 Rocephin/D5w 1gm Iv Premix IV 07/15/24 16:59 100 mls/hr QDAY@1700 JEAN Administration Octreotide Acetate 1,000 mcg/ 102 mls @ 5.1 mls/hr 07/08/24 13:50 07/09/24 09:19 Sodium Chloride IV 07/11/24 13:50 50 mcg/hr .Q20H JEAN 5.1 mls/hr Administration Protocol 50 MCG/HR Insulin Human Lispro 0 unit 07/08/24 12:00 07/09/24 11:36 Insulin Lispro (Admelog) 1 Unit/0.01 Ml Unit SC 08/07/24 11:59 1 unit Q6HR JEAN Administration Protocol Ondansetron HCl 4 mg 07/07/24 21:49 Ondansetron Inj 2 Mg/Ml Inj 2 Ml IV 08/06/24 21:48 Q6H PRN NAUSEA OR VOMITING Protocol Pantoprazole Sodium 40 mg 07/09/24 09:00 07/09/24 09:19 Pantoprazole Inj 40 Mg Vial IVP 08/08/24 08:59 40 mg QDAY JEAN Administration Plan Summary: A 64-year-old male patient with past medical history of diabetes, cirrhosis secondary to hep C, history of laparotomy, was brought to the ED because of hematemesis and melena. Patient was admitted for management of acute upper and lower GI bleed. #Acute GI bleed #Esophageal varices bleeding #Colonopathy DDx variceal bleed vs peptic ulcer disease Patient has history of cirrhosis and hepatitis C, noted distended varices on CT scan the patient also has history of taking diclofenac for the past couple of weeks for pain. Patient has prior history of variceal banding couple years back. 1 PRBC ordered by ER. CT scan of the abdomen showed diffuse wall thickening of the colon and small intestine colonopathy and idiopathic with mesenteric and preaortic lymphadenopathy Plan ? Daily CBC ? Clear liquid diet as per GI recommendations ? Continue IV octreotide gtt for 5 days until 11 Jul 2024 ? Will de-escalate Protonix 40 mg to one-time a day ? IV ceftriaxone 1 g daily for SBP prophylaxis. Started on 07 Jul 2024 ? GI consult Dr. Sotomayor is placed, pending his recommendations regarding colonopathy and diffuse wall thickening recommendations appreciated #History of decompensated cirrhosis #Hep C #Elevated liver enzymes Patient has history of hepatitis C virus, reportedly partially treated, features of decompensated cirrhosis such as, Ascites splenomegaly and thrombocytopenia. Despite elevated serum ammonia levels patient is A&O x 3. No ascites, hepatic encephalopathy, normal coagulopathy panel. Plan ? IV ceftriaxone for SBP prophylaxis ?Stop rifaximin 550 mg p.o. twice daily ? Will hold on the lactulose as of now as the patient did not show any signs of asterixis or hepatic encephalopathy ? Holding off on spironolactone and Lasix in the setting of acute GI bleed, will consider resuming after EGD. ?Will recommend patient follow-up in outpatient settings regarding his hepatitis C treatment as his liver exam keep elevated persistently #Acute anemia Likely blood loss anemia in the setting of GI bleed Plan ?posttransfusion H&H, keep hemoglobin more than 7, transfuse if needed. #Type 2 diabetes mellitus, patient takes metformin despite cirrhosis and Januvia. ? Holding oral hypoglycemics, ? Insulin sliding scale every 6 hours ? Follow A1c #History of hypertension Holding home blood pressure medications due to concurrent GI bleed anticipate hemorrhagic shock Plan ?Will continue to monitor blood pressure at, resume home blood pressure medications if needed. Hospital Maintenance: FEN: Clear liquid diet DVT ppx: SCD, GI ppx: Protonix IV lines: PIV [place]: None Code status: Full code Dispo: Telemetry - Patient's plan and care discussed with my attending, Dr. Ashok Romero MD Internal Medicine PGY-2 Attending Provider Attestation/Addendum I attest that I was physically present for the evaluation, physical examination, lab and imaging review of the patient with the residents. I discussed the case with the residents and agree with the findings and plans of care as documented above. Giancarlo Santana MD
[2024-07-09] MEDS: cefTRIAXone/D5w 1gm IV premix 1 GM/50 ML BAG IV (16:30)
--- NOTE | 2024-07-09 20:14 | PD.IMPROG ---
Documentation for date of: 07/09/24 Subjective Subjective Interval history: Patient evaluated Had a discussion with the internal medicine team for the concern of lower abdominal pain CT scan of the abdomen pelvis shows diffuse wall thickening of the colon as well as small intestine and mesenteric lymphadenopathy Patient will benefit from a colonoscopy examination Patient on clear liquid diet GoLytely prep Patient did undergo upper endoscopy with dilatation of the esophageal varices yesterday in the setting of cirrhotic liver disease secondary to hepatitis C Exam Vital Signs Temp Pulse Resp BP Pulse Ox O2 Del Method O2 Flow Rate 97.1 F 72 17 129/65 96 Room Air 3 07/09/24 16:00 07/09/24 16:00 07/09/24 16:00 07/09/24 16:00 07/09/24 16:00 07/09/24 16:00 07/08/24 18:15 Objective Labs 07/09/24 06:46 07/09/24 06:46 Labs: Laboratory Results - last 24 hr 07/09/24 06:46 WBC 5.6 RBC 3.24 L Hgb 10.3 L Hct 28.8 L MCV 89 MCH 31.8 MCHC 35.8 RDW Std Deviation 44.5 H Plt Count 50 L Neut % (Auto) 69 Lymph % (Auto) 16 [place] % (Auto) 11 Eos % (Auto) 3 Baso % (Auto) 0 Neut # (Auto) 3.9 Lymph # (Auto) 0.9 L [place] # (Auto) 0.6 Eos # (Auto) 0.2 Baso # (Auto) 0.0 Immature Gran # (Auto) 0.02 H Absolute Nucleated RBC 0.00 Immature Gran % 0 Nucleated RBC % 0 PT 12.4 H INR 1.1 Sodium 141 Potassium 3.8 Chloride 107 Carbon Dioxide 25.8 Anion Gap 8 BUN 34 H Creatinine 0.8 Estim Creat Clear Calc 77.1 eGFR > 60 BUN/Creatinine Ratio 43 H Glucose 133 H D Calculated Osmolality 290 Calcium 7.5 L Phosphorus 2.5 Magnesium 1.7 Total Bilirubin 1.1 Direct Bilirubin 0.5 H AST 80 H ALT 68 H Alkaline Phosphatase 93 D Total Protein 6.2 Albumin 3.0 L Misc Test Result Platelets confirmed Impressions Impression: # Pain abdomen # Mesenteric lymphadenitis and lymphadenopathy # Status post band ligation of the esophageal varices Plan Clear liquid diet to continue GoLytely prep Schedule colonoscopy with biopsies Hep C RNA by PCR quantitative analysis Genotype of the hepatitis C ABG Interpretation ABG results: 07/07/24 17:40 ABG pH 7.40 ABG pCO2 39 ABG pO2 75 L ABG HCO3 25 ABG O2 Saturation 96 ABG Base Excess 0 Assessment & Plan A&P Narrative # Acute GI bleed in the setting of melena and hematochezia with backdrop of chronic liver disease secondary to previous consumption of alcohal Plan Serial CBC IV Protonix Octreotide 50 mcg IV push loading dose and then 50 mcg/h Consent obtained for fiberoptic esophagogastroduodenoscopy with possible therapeutic intervention possible biopsy under intravenous moderate sedation Thank you very much for the opportunity to participate in the care of this patient Time Spent With Patient Time: Total time spent is greater than 50% in coordination of care (as documented) at patient's floor/unit and/or counseling patient:
--- NOTE | 2024-07-09 21:35 | XR_ITS ---
Examination: CT abdomen and pelvis without contrast. Coronal 3-D reconstructions. Sagittal 2-D reconstructions. Date and time of exam:July 09, 2024 10:11 PM Comparison July 07, 2024 INDICATIONS: Gastrointestinal bleeding lower abdominal pain today, diagnosis cirrhosis CTDI: vol (mGy): 5.79 DLP: (mGycm): 326 Technique: Axial images of the abdomen have been obtained, 3 mm slice thickness Intravenous contrast material has not been administered. Low dose protocols were performed. One or more of the following dose reduction techniques were used; automated exposure control, adjustment of the mA and/or KV according to patient size, use of iterative reconstruction technique. Findings: COPD with blebs in the lower lung zone Retrocardiac gastric hernia Cirrhosis, liver irregular in contour with low-density areas in the liver again noted, the largest 22 mm Significant splenomegaly Hyperdense gallbladder Mild ascites No pancreatic mass No renal or ureteral calculi, no hydronephrosis Periaortic and mesenteric lymphadenopathy again depicted No bowel obstruction Fat-containing umbilical hernia Normal appendix Diffuse thickening of the colonic wall Contracted urinary bladder Small fat-containing inguinal hernias IMPRESSION: Cirrhosis Mild ascites Significant splenomegaly Hyperdense gallbladder, recommend hepatobiliary sonography follow-up Hepatic colopathy
--- NOTE | 2024-07-09 22:32 | PD.ADDPROG ---
Addendum Progress Note Addendum Date of report being addended: 07/09/24 Narrative: For further evaluation of the abdominal pain which is quite tender on examination on the second visit I ordered a CT scan of the abdomen pelvis without contrast as patient is allergic to IV contrast
--- NOTE | 2024-07-09 23:27 | PC.NURSE ---
Dr. Sotomayor made aware of patient CT abdomen/pelvis report. Dr. Sotomayor says to start golytely.
[2024-07-09] MEDS: NA SU/NAHCO3/KC/PEG (Golytely) 4,000 ML BTL 4000 ML PO (23:39)
[2024-07-10] VITALS (17 sets, daily range): BP systolic 102–146; BP diastolic 55–86; PULSE 54–78; RESP 11–96; TEMP 36.3–37.3; O2SAT 94–99; BMI 21.7
[2024-07-10 06:20] LABS: Basophils % (Auto) 0 % (0-2.5); Eosinophils # (Auto) 0.2 Thou/mm3 (0.0-0.5); Eosinophils % (Auto) 4 % (0-10); Hematocrit 26.9 % (41.0-53.0); Hemoglobin 9.5 g/dL (13.5-16.0); Immature Granulocytes % (Auto) 0 % (0-0); Immature Granulocytes Auto 0.01 Thou/mm3 (0.00-0.00); Lymphocytes # (Auto) 0.8 Thou/mm3 (1.0-4.8); Lymphocytes % (Auto) 20 % (10-50); Mean Corpuscular HGB Conc 35.3 g/dl (31.0-37.0); Mean Corpuscular Volume 91 fL (80-100); Monocytes # (Auto) 0.5 Thou/mm3 (0.0-0.8); Monocytes % (Auto) 12 % (0-12); Neutrophils # (Auto) 2.6 Thou/mm3 (1.8-7.7); Neutrophils % (Auto) 64 % (37-80); Nucleated Red Blood Cell % 0 /100 WBC (0); RDW Standard Deviation 44.5 fL (35.1-43.9); Red Blood Count 2.97 Miln/mm3 (4.50-5.90); White Blood Count 4.1 Thou/mm3 (3.8-10.6)
[2024-07-10 06:21] LABS: Platelet Count 42 Thou/mm3 (140-440)
[2024-07-10 07:30] LABS: Alanine Aminotransferase 59 U/L (10-49); Albumin, Serum 2.8 gm/dL (3.4-4.8); Alkaline Phosphatase 88 U/L (46-116); Anion Gap 7 (7-16); Aspartate Amino Transferase 70 U/L (0-34); BUN/Creatinine Ratio 33 Ratio (12-20); Bilirubin,Direct 0.5 mg/dL (0.0-0.3); Bilirubin,Total 1.1 mg/dL (0.3-1.2); Blood Urea Nitrogen 23 mg/dL (9-23); Calcium 7.4 mg/dL (8.3-10.6); Carbon Dioxide 26.1 mMol/L (20.0-31.0); Chloride 107 mMol/L (98-107); Creatinine (Component) 0.7 mg/dL (0.6-1.3); Estimated Creatinine Clearance 87.7 mL/min (>60); Glucose 141 mg/dL (74-106); Magnesium 1.7 mg/dL (1.6-2.6); Osmolality,Calculated 285 (275-295); Phosphorous 2.8 mg/dL (2.4-5.1); Potassium 3.7 mMol/L (3.4-5.1); Sodium 140 mMol/L (136-145); Total Protein 5.8 gm/dL (5.7-8.2); eGFR > 60 See Note
[2024-07-10] MEDS: PANTOPRAZOLE INJ 40 MG VIAL IVP ×2 (08:19→20:54)
[2024-07-10] MEDS: OCTREOTIDE ACET INJ 1,000 MCG in SODIUM CHLORIDE 0.9% 100 ML 5.1 MCG IV (08:37)
[2024-07-10 08:51] LABS: INR 1.2 (0.9-1.3); Prothrombin Time 12.6 Seconds (9.0-12.2)
--- NOTE | 2024-07-10 09:04 | PC.SS ---
Follow up note: Will complete IV Octreotide on 11 Jul 2024. Pt will return home upon dc.
--- NOTE | 2024-07-10 09:56 | XR_ITS ---
Examination: Abdomen sonogram, complete Date and time of exam: July 10, 2024 1235 hours INDICATIONS: Abdominal pain 8 days with hyperdensity in the gallbladder on CT abdomen pelvis study yesterday. Technique: Multiple real-time grayscale transabdominal sonographic images of the abdomen have been obtained. Findings: Gallbladder sludge Gallbladder wall measure 6.5 mm Common bile duct 0.3 cm Pancreatic head 3.2 cm Aorta not enlarged Liver 13.0 fatty infiltration Normal hepatopedal portal venous flow Patent IVC Right kidney 13.2 cm cortex 1.8 cm 29 mm midpole probable cyst Left kidney 11.5 cm in the cortex 2.0 cm Moderate bilateral renal parenchymal scar formation Spleen 13 cm IMPRESSION: Findings suspicious for acute acalculous cholecystitis, recommend HIDA scan or MRCP follow-up
[2024-07-10 09:59] LABS: Slide Review Platelets confirmed
--- NOTE | 2024-07-10 09:59 | ESPR_ITS ---
<Statement entered by Isaiah Romero MD - 07/11/24 17:25> Patient was seen and examined at bedside. Patient was noticed to have abdominal pain, consultation to the GI specialist was done and reviewed the CT scan was performed. Patient underwent abdominal ultrasound that showed possible echo close cholecystitis. HIDA scan was ordered for tomorrow. Patient still on atorvastatin drip till 11 Jul 2024 - Patient's plan and care discussed with my attending, Dr. Bradly Romero MD Internal Medicine PGY-2 Documentation for date of: 07/10/24 Subjective Subjective Interval history: Patient examined at bedside today. No acute overnight events. Patient reporting some abdominal pain and some right sided lower chest pain. He reports he is wondering when he is going to get colonoscopy today. He is not experiencing shortness of breath. He says he usually has some abdominal pain and lower chest pain since 2017. No other complaints this time Exam Vital Signs Temp Pulse Resp BP Pulse Ox O2 Del Method O2 Flow Rate 97.5 F 74 18 102/58 L 97 Room Air 3 07/10/24 08:00 07/10/24 08:00 07/10/24 08:00 07/10/24 08:00 07/10/24 08:00 07/10/24 08:00 07/09/24 20:00 Narrative Exam General: AAOx3, NAD, Portuguese-speaking male HEENT: Moist mucous membranes, conjunctiva clear, EOMI, PERRLA, Cardiovascular: S1, S2, radial pulses +2 bilat, RRR, reproducible R sided chest pain Pulmonary: CTAB bilat no cough, no wheezing GI: No tenderness to light or deep palpitation, no guarding, rigidity, rebound tenderness or distension, mildline scar Extremities: No presence of trace or pitting edema in lower extremities bilaterally, dorsalis pedis pulses +2 bilaterally Neuro: AAOx3, no focal motor or sensory deficits in the UE or LE bilat Psych: Good judgement, thought and behavior Objective Labs 07/11/24 05:48 07/11/24 05:48 Labs: Laboratory Results - last 24 hr 07/10/24 06:00 WBC 4.1 RBC 2.97 L Hgb 9.5 L Hct 26.9 L MCV 91 MCH 32.0 MCHC 35.3 RDW Std Deviation 44.5 H Plt Count 42 L Neut % (Auto) 64 Lymph % (Auto) 20 [place] % (Auto) 12 Eos % (Auto) 4 Baso % (Auto) 0 Neut # (Auto) 2.6 Lymph # (Auto) 0.8 L [place] # (Auto) 0.5 Eos # (Auto) 0.2 Baso # (Auto) 0.0 Immature Gran # (Auto) 0.01 H Absolute Nucleated RBC 0.00 Immature Gran % 0 Nucleated RBC % 0 PT 12.6 H INR 1.2 Sodium 140 Potassium 3.7 Chloride 107 Carbon Dioxide 26.1 Anion Gap 7 BUN 23 Creatinine 0.7 Estim Creat Clear Calc 87.7 eGFR > 60 BUN/Creatinine Ratio 33 H Glucose 141 H Calculated Osmolality 285 Calcium 7.4 L Phosphorus 2.8 Magnesium 1.7 Total Bilirubin 1.1 Direct Bilirubin 0.5 H AST 70 H ALT 59 H Alkaline Phosphatase 88 Total Protein 5.8 Albumin 2.8 L ABG Interpretation ABG results: 07/07/24 17:40 ABG pH 7.40 ABG pCO2 39 ABG pO2 75 L ABG HCO3 25 ABG O2 Saturation 96 ABG Base Excess 0 Quality Measures Quality Measures none Advance care planning discussed with:: patient Assessment & Plan Assessment Current Active Medications: Generic Name Dose Route Start Last Admin Trade Name Freq PRN Reason Stop Dose Admin Acetaminophen 650 mg 07/07/24 21:49 Acetaminophen 325 Mg Tablet PO 08/06/24 21:48 Q6H PRN PAIN OR FEVER > 101 Dextrose 25 ml 07/07/24 21:49 Dextrose 50%-Water Inj 50 Ml Syringe IV 08/06/24 21:48 Q15MIN PRN BG 50-70 responsive npo pt Dextrose 50 ml 07/07/24 21:49 Dextrose 50%-Water Inj 50 Ml Syringe IV 08/06/24 21:48 Q15MIN PRN BG <50 OR BG <70 & pt unresponsive Glucagon 1 mg 07/07/24 21:49 Glucagon Inj 1 Mg Vial IM Q15MIN PRN BG <70, and no IV access Ceftriaxone Sodium/Dextrose 1 gm in 50 mls @ 100 mls/hr 07/08/24 17:00 07/09/24 16:30 Rocephin/D5w 1gm Iv Premix IV 07/15/24 16:59 100 mls/hr QDAY@1700 JEAN Administration Octreotide Acetate 1,000 mcg/ 102 mls @ 5.1 mls/hr 07/08/24 13:50 07/10/24 08:37 Sodium Chloride IV 07/11/24 13:50 50 mcg/hr .Q20H JEAN 5.1 mls/hr Administration Protocol 50 MCG/HR Insulin Human Lispro 0 unit 07/08/24 12:00 07/10/24 05:11 Insulin Lispro (Admelog) 1 Unit/0.01 Ml Unit SC 08/07/24 11:59 Not Given Q6HR JEAN Protocol Ondansetron HCl 4 mg 07/07/24 21:49 Ondansetron Inj 2 Mg/Ml Inj 2 Ml IV 08/06/24 21:48 Q6H PRN NAUSEA OR VOMITING Protocol Pantoprazole Sodium 40 mg 07/09/24 09:00 07/10/24 08:19 Pantoprazole Inj 40 Mg Vial IVP 08/08/24 08:59 40 mg QDAY JEAN Administration Plan Assessment A 64-year-old male patient with past medical history of diabetes, cirrhosis secondary to hep C, history of laparotomy, was brought to the ED because of hematemesis and melena. Patient was admitted for management of acute upper and lower GI bleed. #Acute GI bleed #Esophageal varices, GII #Colonopathy DDx variceal bleed vs peptic ulcer disease Patient has history of cirrhosis and hepatitis C, noted distended varices on CT scan the patient also has history of taking diclofenac for the past couple of weeks for pain. Patient has prior history of variceal banding couple years back. [address] ER[address] CT scan of the abdomen showed diffuse wall thickening of the colon and small intestine colonopathy and idiopathic with mesenteric and preaortic lymphadenopathy Grade 2 esophageal varices, banded GI is recommending colonoscopy for further workup, on bowel prep Plan: ? Daily CBC ? Colonoscopy tonight ? Continue IV octreotide gtt for 5 days until 11 Jul 2024 ? Will de-escalate Protonix 40 mg to one-time a day ? IV ceftriaxone 1 g daily (07/07-) SBP prophylaxis ? GI consulted, appreciate recs #Right sided abdominal pain DDx: Acute cholecystitis, GERD CT abdomen pelvis showed hyperdense gallbladder Abdominal ultrasound had showed possible acalculous cholecystitis, recommending further imaging Plan: ? HIDA for tomorrow, n.p.o. at midnight #History of decompensated cirrhosis #Hep C, chronic #Elevated liver enzymes, improving Patient has history of hepatitis C virus, reportedly partially treated, features of decompensated cirrhosis such as, Ascites splenomegaly and thrombocytopenia. Despite elevated serum ammonia levels patient is A&O x 3. No ascites, hepatic encephalopathy, normal coagulopathy panel AST ALT improving Plan: ? IV ceftriaxone 1g for SBP prophylaxis ? Stop rifaximin 550 mg p.o. twice daily ? Will hold on the lactulose as of now as the patient did not show any signs of asterixis or hepatic encephalopathy ? Holding off on spironolactone and Lasix in the setting of acute GI bleed, will consider resuming after EGD. ? Will recommend patient follow-up in outpatient settings regarding his hepatitis C treatment as his liver exam keep elevated persistently ? Trend PT and INR #Acute anemia #Thrombocytopenia Likely blood loss anemia in the setting of GI bleed Hemoglobin 9.5 today Platelets 48 Plan: ?Trend with CBC, PT and INR #Type 2 diabetes mellitus A1c of 7 Plan: ? Sliding scale insulin ? Hypoglycemic protocol in place ? Blood sugar checks with meals #History of hypertension Holding home blood pressure medications due to concurrent GI bleed anticipate hemorrhagic shock Plan: ? Will continue to monitor blood pressure at, resume home blood pressure medications if needed. #Health Maintenance Disposition: Telemetry DVT prophylaxis: SCD GI prophylaxis: Protonix 40 mg IV twice daily Diet: N.p.o. at midnight CODE STATUS: Full Patient seen and care discussed with my senior resident, Dr. Romero, and my attending physician, Dr. Esther Dawson, PGY-1 Attending Provider Attestation/Addendum I attest that I was physically present for the evaluation, physical examination, lab and imaging review of the patient with the residents. I discussed the case with the residents and agree with the findings and plans of care as documented above. At bedside today, patient continues to complain of abdominal pain, around all quadrants except for the left upper quadrant. Denies any nausea or vomiting. Tender on palpation, more towards lower quadrants. Patient is planned for colonoscopy tonight with gastroenterology. Continues to be on octreotide drip, Protonix and Rocephin. Abdominal ultrasound was obtained for right upper quadrant pain which showed possible acalculous cholecystitis. We will obtain a HIDA scan, keep patient n.p.o. overnight, we will plan for general surgery consult if HIDA scan is suggestive of cholecystitis. Continues to be on insulin regimen for diabetes. Giancarlo Santana MD
--- NOTE | 2024-07-10 12:23 | EKG_ITS ---
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
[2024-07-10] MEDS: INSULIN LISPRO (AdmeLOG) 1 UNIT/0.01 ML UNIT SC (12:41)
[2024-07-10 13:34] LABS: Troponin I < 0.002 ng/mL (0.0-0.045)
[2024-07-10] MEDS: cefTRIAXone/D5w 1gm IV premix 1 GM/50 ML BAG IV (17:40)
--- NOTE | 2024-07-10 22:50 | SUR.PHASEI ---
pt transported to room via gurney. denies pain and nausea. vss. breathing even and unlabored. report called to nurse minh.
[2024-07-11] VITALS: BP 145/82; PULSE 58; PULSE 63; RESP 14; TEMP 36.3; O2SAT 99
[2024-07-11] MEDS: SIMETHICONE 80 MG CHEW PO (01:55)
[2024-07-11] MEDS: OCTREOTIDE ACET INJ 1,000 MCG in SODIUM CHLORIDE 0.9% 100 ML 5.1 MCG IV (03:46)
[2024-07-11 04:00] VITALS: BP 111/62; PULSE 66; PULSE 69; RESP 14; TEMP 37; O2SAT 95
[2024-07-11 06:00] VITALS: BMI 21.7
[2024-07-11 06:23] LABS: Basophils % (Auto) 0 % (0-2.5); Eosinophils # (Auto) 0.1 Thou/mm3 (0.0-0.5); Eosinophils % (Auto) 4 % (0-10); Hematocrit 27.8 % (41.0-53.0); Hemoglobin 9.5 g/dL (13.5-16.0); Immature Granulocytes % (Auto) 1 % (0-0); Immature Granulocytes Auto 0.02 Thou/mm3 (0.00-0.00); Lymphocytes # (Auto) 0.7 Thou/mm3 (1.0-4.8); Lymphocytes % (Auto) 21 % (10-50); Mean Corpuscular HGB Conc 34.2 g/dl (31.0-37.0); Mean Corpuscular Hemoglobin 31.4 pg (25.0-35.0); Mean Corpuscular Volume 92 fL (80-100); Monocytes # (Auto) 0.4 Thou/mm3 (0.0-0.8); Monocytes % (Auto) 11 % (0-12); Neutrophils # (Auto) 2.1 Thou/mm3 (1.8-7.7); Neutrophils % (Auto) 63 % (37-80); Nucleated Red Blood Cell % 0 /100 WBC (0); RDW Standard Deviation 43.5 fL (35.1-43.9); Red Blood Count 3.03 Miln/mm3 (4.50-5.90); White Blood Count 3.3 Thou/mm3 (3.8-10.6)
[2024-07-11 06:27] LABS: Platelet Count 46 Thou/mm3 (140-440)
[2024-07-11 06:28] LABS: Slide Review Platelets confirmed
[2024-07-11 06:37] LABS: INR 1.2 (0.9-1.3); Partial Thromboplastin Time 24.8 Seconds (22.0-36.0)
[2024-07-11 06:43] LABS: Alanine Aminotransferase 57 U/L (10-49); Albumin, Serum 2.8 gm/dL (3.4-4.8); Albumin/Globulin Ratio 0.9 (1.2-2.2); Alkaline Phosphatase 89 U/L (46-116); Anion Gap 5 (7-16); Aspartate Amino Transferase 64 U/L (0-34); BUN/Creatinine Ratio 20 Ratio (12-20); Blood Urea Nitrogen 14 mg/dL (9-23); Calcium 7.4 mg/dL (8.3-10.6); Calcium (Corrected) 8.4 mg/dL (8.5-10.1); Carbon Dioxide 26.9 mMol/L (20.0-31.0); Chloride 107 mMol/L (98-107); Creatinine (Component) 0.7 mg/dL (0.6-1.3); Estimated Creatinine Clearance 87.7 mL/min (>60); Globulin 3.1 gm/dL (2.3-3.5); Glucose 146 mg/dL (74-106); Magnesium 1.5 mg/dL (1.6-2.6); Osmolality,Calculated 281 (275-295); Potassium 3.6 mMol/L (3.4-5.1); Sodium 139 mMol/L (136-145); Total Protein 5.9 gm/dL (5.7-8.2); eGFR > 60 See Note
[2024-07-11 08:00] VITALS: BP 108/59; PULSE 66; PULSE 68; RESP 13; TEMP 36.8; O2SAT 97
--- NOTE | 2024-07-11 08:00 | XR_ITS ---
Examination: MARIELLA, hepatobiliary radioisotope scan Gallbladder ejection fraction study. Date and time of exam: July 11, 2024 1424 hours INDICATIONS: Melena, hematochezia, elevated bilirubin, abdominal pain this week, Technique: 5.7 mCi of 99M Hepatolite administered. Serial imaging then obtained from immediate through 60 minutes. 1.2 mcg selective catheter Kinevac administered for gallbladder ejection fraction study. Findings: Radioisotope activity within the liver is reasonably homogenous. Gallbladder, common bile duct small bowel activity noted Impression: Gallbladder activity, abnormal gallbladder ejection fraction 10% normal greater than 35%
[2024-07-11] MEDS: PANTOPRAZOLE INJ 40 MG VIAL IVP ×2 (08:47→20:18)
[2024-07-11 10:43] LABS: Path Review Blood Smear Sent to Pathologist
[2024-07-11 12:00] VITALS: BP 107/62; PULSE 66; PULSE 71; RESP 17; TEMP 37; O2SAT 97
[2024-07-11] MEDS: Magnesium Sulfate 2 GM Ivpb 2 GM/50 ML BAG IV (12:19)
[2024-07-11 16:00] VITALS: PULSE 70
--- NOTE | 2024-07-11 17:38 | ESPR_ITS ---
<Statement entered by Isaiah Romero MD - 07/13/24 15:14> Patient was seen and examined at bedside. Reported mild improvement of his sx, US showed possible acalculous cholecustitis, HIDA scan showed GB EF of 10%, Will consult surgery for further recommendations. Colonoscoopy was done, no visible mass were found, No biopsy was taken. - Patient's plan and care discussed with my attending, Dr. Bradly Romero MD Internal Medicine PGY-2 Documentation for date of: 07/11/24 Subjective Subjective Interval history: Patient examined at bedside today. No acute overnight events. Is wondering when to get his HIDA. He reports that his abdominal pain is around the same. No other complaints this time Exam Vital Signs Temp Pulse Resp BP Pulse Ox O2 Del Method O2 Flow Rate 98.6 F 71 17 107/62 97 Room Air 3 07/11/24 12:00 07/11/24 12:00 07/11/24 12:00 07/11/24 12:00 07/11/24 12:00 07/11/24 12:00 07/11/24 12:00 Narrative Exam General: AAOx3, NAD, Icelandic-speaking male HEENT: Moist mucous membranes, conjunctiva clear, EOMI, PERRLA, Cardiovascular: S1, S2, radial pulses +2 bilat, RRR, reproducible R sided chest pain Pulmonary: CTAB bilat no cough, no wheezing GI: No tenderness to light or deep palpitation, no guarding, rigidity, rebound tenderness or distension, mildline scar Extremities: No presence of trace or pitting edema in lower extremities bilaterally, dorsalis pedis pulses +2 bilaterally Neuro: AAOx3, no focal motor or sensory deficits in the UE or LE bilat Psych: Good judgement, thought and behavior Objective Labs 07/12/24 09:25 07/12/24 09:25 Labs: Laboratory Results - last 24 hr 07/11/24 05:48 WBC 3.3 L RBC 3.03 L Hgb 9.5 L Hct 27.8 L MCV 92 MCH 31.4 MCHC 34.2 RDW Std Deviation 43.5 Plt Count 46 L Neut % (Auto) 63 Lymph % (Auto) 21 [place] % (Auto) 11 Eos % (Auto) 4 Baso % (Auto) 0 Neut # (Auto) 2.1 Lymph # (Auto) 0.7 L [place] # (Auto) 0.4 Eos # (Auto) 0.1 Baso # (Auto) 0.0 Immature Gran # (Auto) 0.02 H Absolute Nucleated RBC 0.00 Immature Gran % 1 H Nucleated RBC % 0 Smear Path Review Sent to Pathologist PT 13.0 H INR 1.2 APTT 24.8 Sodium 139 Potassium 3.6 Chloride 107 Carbon Dioxide 26.9 Anion Gap 5 L BUN 14 Creatinine 0.7 Estim Creat Clear Calc 87.7 eGFR > 60 BUN/Creatinine Ratio 20 Glucose 146 H Calculated Osmolality 281 Calcium 7.4 L Corrected Calcium 8.4 L Magnesium 1.5 L Total Bilirubin 1.0 AST 64 H ALT 57 H Alkaline Phosphatase 89 Total Protein 5.9 Albumin 2.8 L Globulin 3.1 Albumin/Globulin Ratio 0.9 L Misc Test Result Platelets confirmed ABG Interpretation ABG results: 07/07/24 17:40 ABG pH 7.40 ABG pCO2 39 ABG pO2 75 L ABG HCO3 25 ABG O2 Saturation 96 ABG Base Excess 0 Quality Measures Quality Measures none Advance care planning discussed with:: patient Assessment & Plan Assessment Current Active Medications: Generic Name Dose Route Start Last Admin Trade Name Freq PRN Reason Stop Dose Admin Acetaminophen 650 mg 07/07/24 21:49 Acetaminophen 325 Mg Tablet PO 08/06/24 21:48 Q6H PRN PAIN OR FEVER > 101 Dextrose 25 ml 07/07/24 21:49 Dextrose 50%-Water Inj 50 Ml Syringe IV 08/06/24 21:48 Q15MIN PRN BG 50-70 responsive npo pt Dextrose 50 ml 07/07/24 21:49 Dextrose 50%-Water Inj 50 Ml Syringe IV 08/06/24 21:48 Q15MIN PRN BG <50 OR BG <70 & pt unresponsive Glucagon 1 mg 07/07/24 21:49 Glucagon Inj 1 Mg Vial IM Q15MIN PRN BG <70, and no IV access Ceftriaxone Sodium/Dextrose 1 gm in 50 mls @ 100 mls/hr 07/08/24 17:00 07/10/24 17:40 Rocephin/D5w 1gm Iv Premix IV 07/15/24 16:59 100 mls/hr QDAY@1700 JEAN Administration Insulin Human Lispro 0 unit 07/08/24 12:00 07/11/24 12:46 Insulin Lispro (Admelog) 1 Unit/0.01 Ml Unit SC 08/07/24 11:59 Not Given Q6HR JEAN Protocol Ondansetron HCl 4 mg 07/07/24 21:49 Ondansetron Inj 2 Mg/Ml Inj 2 Ml IV 08/06/24 21:48 Q6H PRN NAUSEA OR VOMITING Protocol Pantoprazole Sodium 40 mg 07/10/24 21:00 07/11/24 08:47 Pantoprazole Inj 40 Mg Vial IVP 08/09/24 20:59 40 mg BID JEAN Administration Plan Assessment A 64-year-old male patient with past medical history of diabetes, cirrhosis secondary to hep C, history of laparotomy, was brought to the ED because of hematemesis and melena. Patient was admitted for management of acute upper and lower GI bleed. #Acute GI bleed #Esophageal varices, GII #Colonopathy DDx variceal bleed vs peptic ulcer disease Patient has history of cirrhosis and hepatitis C, noted distended varices on CT scan the patient also has history of taking diclofenac for the past couple of weeks for pain. Patient has prior history of variceal banding couple years back. 1 PRBC ordered by ER. CT scan of the abdomen showed diffuse wall thickening of the colon and small intestine colonopathy and idiopathic with mesenteric and preaortic lymphadenopathy Grade 2 esophageal varices, banded Colonoscopy shows internal hemorrhoids which were banded with 3 bands, and moderate diverticulosis, no diverticular bleed Patient still complaining of pain, will order HIDA as imaging showed possible acalculous cholecystitis Plan: ? Daily CBC ? HIDA today ? Continue IV octreotide gtt for 5 days until 11 Jul 2024 ? Protonix 40 mg twice daily IV ? IV ceftriaxone 1 g daily (07/07-) SBP prophylaxis ? GI consulted, appreciate recs #Right sided abdominal pain DDx: Acute cholecystitis, GERD CT abdomen pelvis showed hyperdense gallbladder Abdominal ultrasound had showed possible acalculous cholecystitis, recommending further imaging Plan: ? HIDA today #History of decompensated cirrhosis #Hep C, chronic #Elevated liver enzymes, improving Patient has history of hepatitis C virus, reportedly partially treated, features of decompensated cirrhosis such as, Ascites splenomegaly and thrombocytopenia. Despite elevated serum ammonia levels patient is A&O x 3. No ascites, hepatic encephalopathy, normal coagulopathy panel AST ALT improving Plan: ? IV ceftriaxone 1g for SBP prophylaxis ? Will recommend patient follow-up in outpatient settings regarding his hepatitis C treatment as his liver exam keep elevated persistently ? Trend PT and INR #Acute blood loss anemia #Thrombocytopenia Likely blood loss anemia in the setting of GI bleed Hemoglobin 9.5 today Platelets 46 Plan: ?Trend with CBC, PT and INR #Type 2 diabetes mellitus A1c of 7 Plan: ? Sliding scale insulin ? Hypoglycemic protocol in place ? Blood sugar checks with meals #History of hypertension Holding home blood pressure medications due to concurrent GI bleed anticipate hemorrhagic shock Plan: ? Will continue to monitor blood pressure at, resume home blood pressure medications if needed. #Health Maintenance Disposition: Telemetry DVT prophylaxis: SCD GI prophylaxis: Protonix 40 mg IV twice daily Diet: N.p.o. for HIDA, will resume diet after CODE STATUS: Full Patient seen and care discussed with my senior resident, Dr. Romero, and my attending physician, Dr. Esther Dawson, PGY-1 Attending Provider Attestation/Addendum I attest that I was physically present for the evaluation, physical examination, lab and imaging review of the patient with the residents. I discussed the case with the residents and agree with the findings and plans of care as documented above. Giancarlo Santana MD
[2024-07-11] MEDS: cefTRIAXone/D5w 1gm IV premix 1 GM/50 ML BAG IV (18:28)
[2024-07-11] MEDS: ONDANSETRON INJ 2 MG/ML INJ 2 ML 4 MG IV (19:38)
[2024-07-11 20:00] VITALS: BP 140/60; PULSE 70; PULSE 81; RESP 14; TEMP 37; O2SAT 99
--- NOTE | 2024-07-11 20:55 | ESPR_ITS ---
Documentation for date of: 07/11/24 Subjective Subjective Interval history: Hemoglobin hematocrit 9.5 and 27.8 Colonoscopy done yesterday showed large internal hemorrhoids requiring band ligation 3 bands were put in Diverticulosis of the left colon Upper endoscopy has shown esophageal varices requiring band ligation as well Exam Vital Signs Temp Pulse Resp BP Pulse Ox O2 Del Method O2 Flow Rate 98.6 F 70 17 107/62 97 Room Air 3 07/11/24 12:00 07/11/24 16:00 07/11/24 12:00 07/11/24 12:00 07/11/24 12:00 07/11/24 12:00 07/11/24 12:00 Objective Labs 07/11/24 05:48 07/11/24 05:48 Labs: Laboratory Results - last 24 hr 07/11/24 05:48 WBC 3.3 L RBC 3.03 L Hgb 9.5 L Hct 27.8 L MCV 92 MCH 31.4 MCHC 34.2 RDW Std Deviation 43.5 Plt Count 46 L Neut % (Auto) 63 Lymph % (Auto) 21 [place] % (Auto) 11 Eos % (Auto) 4 Baso % (Auto) 0 Neut # (Auto) 2.1 Lymph # (Auto) 0.7 L [place] # (Auto) 0.4 Eos # (Auto) 0.1 Baso # (Auto) 0.0 Immature Gran # (Auto) 0.02 H Absolute Nucleated RBC 0.00 Immature Gran % 1 H Nucleated RBC % 0 Smear Path Review Sent to Pathologist PT 13.0 H INR 1.2 APTT 24.8 Sodium 139 Potassium 3.6 Chloride 107 Carbon Dioxide 26.9 Anion Gap 5 L BUN 14 Creatinine 0.7 Estim Creat Clear Calc 87.7 eGFR > 60 BUN/Creatinine Ratio 20 Glucose 146 H Calculated Osmolality 281 Calcium 7.4 L Corrected Calcium 8.4 L Magnesium 1.5 L Total Bilirubin 1.0 AST 64 H ALT 57 H Alkaline Phosphatase 89 Total Protein 5.9 Albumin 2.8 L Globulin 3.1 Albumin/Globulin Ratio 0.9 L Misc Test Result Platelets confirmed Impressions Impression: Esophageal varices requiring band ligation Large internal hemorrhoids requiring band ligation Diverticulosis left colon Continue current management Follow CBC ABG Interpretation ABG results: 07/07/24 17:40 ABG pH 7.40 ABG pCO2 39 ABG pO2 75 L ABG HCO3 25 ABG O2 Saturation 96 ABG Base Excess 0 Assessment & Plan A&P Narrative # Acute GI bleed in the setting of melena and hematochezia with backdrop of chronic liver disease secondary to previous consumption of alcohal Plan Serial CBC IV Protonix Octreotide 50 mcg IV push loading dose and then 50 mcg/h Consent obtained for fiberoptic esophagogastroduodenoscopy with possible therapeutic intervention possible biopsy under intravenous moderate sedation Thank you very much for the opportunity to participate in the care of this patient Time Spent With Patient Time: Total time spent is greater than 50% in coordination of care (as documented) at patient's floor/unit and/or counseling patient:
[2024-07-12] VITALS: BP 105/60; PULSE 103; PULSE 98; RESP 19; TEMP 38.1; O2SAT 98
[2024-07-12] MEDS: INSULIN LISPRO (AdmeLOG) 1 UNIT/0.01 ML UNIT SC (00:38)
[2024-07-12 04:00] VITALS: BP 106/60; PULSE 70; PULSE 81; RESP 14; TEMP 36.5; O2SAT 97
[2024-07-12] MEDS: SIMETHICONE 80 MG CHEW PO (04:06)
[2024-07-12 06:00] VITALS: BMI 24.4
[2024-07-12] MEDS: PIPER/TAZO INJ 4.5 GM in SODIUM CHLORIDE 0.9% (POP) 100 ML IV ×4 (07:56→23:20)
[2024-07-12] MEDS: ALBUMIN HUMAN 25% IVPB 25 GM/100 ML BTL IV (07:57)
[2024-07-12 08:00] VITALS: PULSE 69
--- NOTE | 2024-07-12 09:16 | PC.SS ---
Follow up note; Dr. Santillan is consulting. Pt possibly have surgery. Pt will return home upon dc.
[2024-07-12 09:44] LABS: Basophils % (Auto) 0 % (0-2.5); Eosinophils # (Auto) 0.1 Thou/mm3 (0.0-0.5); Eosinophils % (Auto) 2 % (0-10); Hematocrit 31.6 % (41.0-53.0); Hemoglobin 11.1 g/dL (13.5-16.0); Immature Granulocytes % (Auto) 1 % (0-0); Immature Granulocytes Auto 0.03 Thou/mm3 (0.00-0.00); Lymphocytes # (Auto) 0.6 Thou/mm3 (1.0-4.8); Lymphocytes % (Auto) 9 % (10-50); Mean Corpuscular HGB Conc 35.1 g/dl (31.0-37.0); Mean Corpuscular Hemoglobin 31.7 pg (25.0-35.0); Mean Corpuscular Volume 90 fL (80-100); Monocytes # (Auto) 0.7 Thou/mm3 (0.0-0.8); Monocytes % (Auto) 10 % (0-12); Neutrophils # (Auto) 5.2 Thou/mm3 (1.8-7.7); Neutrophils % (Auto) 78 % (37-80); Nucleated Red Blood Cell % 0 /100 WBC (0); RDW Standard Deviation 43.6 fL (35.1-43.9); White Blood Count 6.7 Thou/mm3 (3.8-10.6)
[2024-07-12 09:45] LABS: Platelet Count 53 Thou/mm3 (140-440)
[2024-07-12 09:55] LABS: INR 1.2 (0.9-1.3); Partial Thromboplastin Time 24.8 Seconds (22.0-36.0); Prothrombin Time 13.2 Seconds (9.0-12.2)
[2024-07-12 10:12] LABS: Alanine Aminotransferase 55 U/L (10-49); Albumin, Serum 3.9 gm/dL (3.4-4.8); Albumin/Globulin Ratio 1.1 (1.2-2.2); Alkaline Phosphatase 107 U/L (46-116); Anion Gap 8 (7-16); Aspartate Amino Transferase 61 U/L (0-34); BUN/Creatinine Ratio 18 Ratio (12-20); Bilirubin,Total 1.6 mg/dL (0.3-1.2); Blood Urea Nitrogen 16 mg/dL (9-23); Calcium 8.4 mg/dL (8.3-10.6); Calcium (Corrected) 8.5 mg/dL (8.5-10.1); Carbon Dioxide 27.4 mMol/L (20.0-31.0); Chloride 102 mMol/L (98-107); Creatinine (Component) 0.9 mg/dL (0.6-1.3); Estimated Creatinine Clearance 68.5 mL/min (>60); Globulin 3.7 gm/dL (2.3-3.5); Glucose 171 mg/dL (74-106); Magnesium 1.7 mg/dL (1.6-2.6); Osmolality,Calculated 279 (275-295); Potassium 4.2 mMol/L (3.4-5.1); Sodium 137 mMol/L (136-145); Total Protein 7.6 gm/dL (5.7-8.2); eGFR > 60 See Note
[2024-07-12 11:10] LABS: Slide Review Platelets confirmed
--- NOTE | 2024-07-12 11:50 | PD.IMPROG ---
Documentation for date of: 07/12/24 Subjective Subjective Interval history: Hemoglobin hematocrit 11.1 and 31.6 Exam Vital Signs Temp Pulse Resp BP Pulse Ox O2 Del Method O2 Flow Rate 97.7 F 81 14 106/60 97 Room Air 3 07/12/24 04:00 07/12/24 04:00 07/12/24 04:00 07/12/24 04:00 07/12/24 04:00 07/12/24 04:00 07/11/24 12:00 Objective Labs 07/12/24 09:25 07/12/24 09:25 Labs: Laboratory Results - last 24 hr 07/12/24 09:25 WBC 6.7 D RBC 3.50 L Hgb 11.1 L Hct 31.6 L MCV 90 MCH 31.7 MCHC 35.1 RDW Std Deviation 43.6 Plt Count 53 L Neut % (Auto) 78 Lymph % (Auto) 9 L [place] % (Auto) 10 Eos % (Auto) 2 Baso % (Auto) 0 Neut # (Auto) 5.2 Lymph # (Auto) 0.6 L [place] # (Auto) 0.7 Eos # (Auto) 0.1 Baso # (Auto) 0.0 Immature Gran # (Auto) 0.03 H Absolute Nucleated RBC 0.00 Immature Gran % 1 H Nucleated RBC % 0 PT 13.2 H INR 1.2 APTT 24.8 Sodium 137 Potassium 4.2 D Chloride 102 Carbon Dioxide 27.4 Anion Gap 8 BUN 16 Creatinine 0.9 Estim Creat Clear Calc 68.5 eGFR > 60 BUN/Creatinine Ratio 18 Glucose 171 H Calculated Osmolality 279 Lactic Acid 1.0 Calcium 8.4 Corrected Calcium 8.5 Magnesium 1.7 Total Bilirubin 1.6 H D AST 61 H ALT 55 H Alkaline Phosphatase 107 D Total Protein 7.6 Albumin 3.9 D Globulin 3.7 H Albumin/Globulin Ratio 1.1 L Misc Test Result Platelets confirmed Impressions Impression: # Esophageal variceal band ligation # Large internal hemorrhoid status post band ligation Continue current management and monitor CBC ABG Interpretation ABG results: 07/07/24 17:40 ABG pH 7.40 ABG pCO2 39 ABG pO2 75 L ABG HCO3 25 ABG O2 Saturation 96 ABG Base Excess 0 Assessment & Plan A&P Narrative # Acute GI bleed in the setting of melena and hematochezia with backdrop of chronic liver disease secondary to previous consumption of alcohal Plan Serial CBC IV Protonix Octreotide 50 mcg IV push loading dose and then 50 mcg/h Consent obtained for fiberoptic esophagogastroduodenoscopy with possible therapeutic intervention possible biopsy under intravenous moderate sedation Thank you very much for the opportunity to participate in the care of this patient Time Spent With Patient Time: Total time spent is greater than 50% in coordination of care (as documented) at patient's floor/unit and/or counseling patient:
[2024-07-12 12:00] VITALS: BP 106/60; PULSE 71; PULSE 82; RESP 20; TEMP 36.5; O2SAT 98
[2024-07-12 16:00] VITALS: BP 108/53; PULSE 65; PULSE 75; RESP 19; TEMP 36.7; O2SAT 98
--- NOTE | 2024-07-12 16:27 | PD.HHPROG ---
Documentation for date of: 07/12/24 Subjective - Hospitalist Subjective Interval history: At bedside today, patient complains of right upper quadrant pain. Denies any nausea/vomiting or fever. Underwent HIDA scan yesterday, had decreased gallbladder activity with ejection fraction of only 10% concerning for acalculous cholecystitis as mentioned on abdominal ultrasound done yesterday. We will obtain general surgery consult, start the patient on IV antibiotics and obtain culture results. Review of Systems Review of Systems Systems Reviewed: All systems reviewed, normal except as documented Exam Vital Signs Temp Pulse Resp BP Pulse Ox O2 Del Method O2 Flow Rate 98.6 F 76 19 114/60 97 Room Air 3 07/12/24 20:00 07/12/24 20:00 07/12/24 20:00 07/12/24 20:00 07/12/24 20:00 07/12/24 20:00 07/11/24 12:00 Narrative General: Alert and oriented, appears to be in mild distress, able to answer questions and follow commands appropriately HEENT: EOMI, PERRLA, no pallor or icterus Cardio: RRR, S1 and S2 heard without murmurs Respiratory: Clear to auscultate bilaterally, no wheeze or crackles Abdomen: Mild tenderness around all quadrants, more towards right upper quadrant, no guarding or rigidity MSK: No edema Neuro:Alert and Oriented x 4 Psych: Appropriate mood and behaviour Objective - Hospitalist Labs Diagram: 07/12/24 09:25 07/12/24 09:25 Labs: Laboratory Results - last 24 hr 07/12/24 09:25 WBC 6.7 D RBC 3.50 L Hgb 11.1 L Hct 31.6 L MCV 90 MCH 31.7 MCHC 35.1 RDW Std Deviation 43.6 Plt Count 53 L Neut % (Auto) 78 Lymph % (Auto) 9 L [place] % (Auto) 10 Eos % (Auto) 2 Baso % (Auto) 0 Neut # (Auto) 5.2 Lymph # (Auto) 0.6 L [place] # (Auto) 0.7 Eos # (Auto) 0.1 Baso # (Auto) 0.0 Immature Gran # (Auto) 0.03 H Absolute Nucleated RBC 0.00 Immature Gran % 1 H Nucleated RBC % 0 PT 13.2 H INR 1.2 APTT 24.8 Sodium 137 Potassium 4.2 D Chloride 102 Carbon Dioxide 27.4 Anion Gap 8 BUN 16 Creatinine 0.9 Estim Creat Clear Calc 68.5 eGFR > 60 BUN/Creatinine Ratio 18 Glucose 171 H Calculated Osmolality 279 Lactic Acid 1.0 Calcium 8.4 Corrected Calcium 8.5 Magnesium 1.7 Total Bilirubin 1.6 H D AST 61 H ALT 55 H Alkaline Phosphatase 107 D Total Protein 7.6 Albumin 3.9 D Globulin 3.7 H Albumin/Globulin Ratio 1.1 L Misc Test Result Platelets confirmed ABG Interpretation ABG results: 07/07/24 17:40 ABG pH 7.40 ABG pCO2 39 ABG pO2 75 L ABG HCO3 25 ABG O2 Saturation 96 ABG Base Excess 0 Assessment & Plan Assessment: A 64-year-old male patient with past medical history of diabetes, cirrhosis secondary to hep C, history of laparotomy, was brought to the ED because of hematemesis and melena. Patient was admitted for management of acute upper and lower GI bleed. #Acalculous cholecystitis Patient has been having abdominal pain, more towards right upper quadrant Underwent abdominal ultrasound, suggestive of acalculous cholecystitis Underwent HIDA scan, shows ejection fraction of 10% Antibiotics switched to IV Zosyn Blood cultures obtained General surgery consulted, awaiting recommendations #Acute GI bleed #Esophageal varices, GII #Colonopathy DDx variceal bleed vs peptic ulcer disease Patient has history of cirrhosis and hepatitis C, noted distended varices on CT scan the patient also has history of taking diclofenac for the past couple of weeks for pain. Patient has prior history of variceal banding couple years back. [address] ordered by ER. CT scan of the abdomen showed diffuse wall thickening of the colon and small intestine colonopathy and idiopathic with mesenteric and preaortic lymphadenopathy Grade 2 esophageal varices, banded Colonoscopy shows internal hemorrhoids which were banded with 3 bands, and moderate diverticulosis, no diverticular bleed Continues to have a stable hemoglobin Plan: ? Daily CBC ? HIDA today ? Octreotide drip completed ? Protonix 40 mg twice daily IV ? GI following, appreciate recs #History of decompensated cirrhosis #Hep C, chronic #Elevated liver enzymes, improving Patient has history of hepatitis C virus, reportedly partially treated, features of decompensated cirrhosis such as, Ascites splenomegaly and thrombocytopenia. Despite elevated serum ammonia levels patient is A&O x 3. No ascites, hepatic encephalopathy, normal coagulopathy panel AST ALT improving Patient has hep C antibody positive, HCVRNA 8.82 million Plan: ? Will recommend patient follow-up in outpatient settings regarding his hepatitis C treatment as his liver exam keep elevated persistently ? Trend PT and INR #Acute blood loss anemia #Thrombocytopenia Likely blood loss anemia in the setting of GI bleed Hemoglobin 11.1 today Platelets 53 Plan: ?Trend with CBC, PT and INR #Type 2 diabetes mellitus A1c of 7 Plan: ? Sliding scale insulin ? Hypoglycemic protocol in place ? Blood sugar checks with meals #History of hypertension Blood pressure was soft today, received 25 g of albumin infusion, holding home medications Disposition: Telemetry DVT prophylaxis: SCD GI prophylaxis: Protonix 40 mg IV twice daily Diet: N.p.o. for HIDA, will resume diet after CODE STATUS: Full Giancarlo De Los Santos MD Time Spent with Patient Time: Total time spent is greater than 50% in coordination of care (as documented) at patient's floor/unit and/or counseling patient: Time with patient: Greater than 35 minutes Reason for Continued Stay Reason for continued stay: IV antibiotics Quality Measures Quality Measures none Advance care planning discussed with:: patient
[2024-07-12 20:00] VITALS: BP 114/60; PULSE 70; PULSE 76; RESP 19; TEMP 37; O2SAT 97
[2024-07-12] MEDS: PANTOPRAZOLE INJ 40 MG VIAL IVP (20:13)
[2024-07-13] VITALS (7 sets, daily range): BP systolic 95–122; BP diastolic 52–68; PULSE 61–72; RESP 13–22; TEMP 36.4–37.3; O2SAT 96–99; BMI 24.1
--- NOTE | 2024-07-13 | XR_ITS ---
Examination: AP chest single view Technique one AP portable semiupright chest single view Examination time: July 13, 2024 0832 hours Comparison July 07, 2024 INDICATIONS: Chest pain and chest tightness today. FINDINGS: Normal heart size No lobar pneumonia or pulmonary edema. Moderate osteopenia IMPRESSION: No pneumonia or pulmonary edema
[2024-07-13] MEDS: PIPER/TAZO INJ 4.5 GM in SODIUM CHLORIDE 0.9% (POP) 100 ML IV ×4 (05:23→23:15)
[2024-07-13] MEDS: PANTOPRAZOLE INJ 40 MG VIAL IVP ×2 (08:11→20:43)
--- NOTE | 2024-07-13 08:12 | EKG_ITS ---
[facility] Test Date: 2024-07-13 Pat Name: YAYA JOHNSON [facility] Gender[facility] Records Management Coordinator: ANNETTE : 1960 Requested By: Isaiah Romero Order Number: [id number] Reading MD: Isaiah Romero Measurements Intervals [place] Rate: 64 P: 33 ME: 173 QRS: 30 QRSD: 98 T: 15 QT: 423 QTc: 437 Interpretive Statements SINUS RHYTHM Compared to ECG 07/10/2024 12:32:28 Sinus bradycardia no longer present /store/S0/[id number]
[2024-07-13 08:50] LABS: Basophils % (Auto) 1 % (0-2.5); Eosinophils # (Auto) 0.1 Thou/mm3 (0.0-0.5); Eosinophils % (Auto) 4 % (0-10); Hematocrit 28.2 % (41.0-53.0); Hemoglobin 10.1 g/dL (13.5-16.0); Immature Granulocytes % (Auto) 0 % (0-0); Immature Granulocytes Auto 0.01 Thou/mm3 (0.00-0.00); Lymphocytes # (Auto) 0.7 Thou/mm3 (1.0-4.8); Lymphocytes % (Auto) 19 % (10-50); Mean Corpuscular HGB Conc 35.8 g/dl (31.0-37.0); Mean Corpuscular Hemoglobin 31.8 pg (25.0-35.0); Mean Corpuscular Volume 89 fL (80-100); Monocytes # (Auto) 0.5 Thou/mm3 (0.0-0.8); Monocytes % (Auto) 14 % (0-12); Neutrophils # (Auto) 2.3 Thou/mm3 (1.8-7.7); Neutrophils % (Auto) 62 % (37-80); Nucleated Red Blood Cell % 0 /100 WBC (0); RDW Standard Deviation 43.2 fL (35.1-43.9); Red Blood Count 3.18 Miln/mm3 (4.50-5.90); White Blood Count 3.6 Thou/mm3 (3.8-10.6)
[2024-07-13 09:01] LABS: Platelet Count 43 Thou/mm3 (140-440)
[2024-07-13 09:11] LABS: Alanine Aminotransferase 48 U/L (10-49); Albumin, Serum 3.4 gm/dL (3.4-4.8); Albumin/Globulin Ratio 1.1 (1.2-2.2); Alkaline Phosphatase 96 U/L (46-116); Anion Gap 5 (7-16); Aspartate Amino Transferase 60 U/L (0-34); BUN/Creatinine Ratio 16 Ratio (12-20); Blood Urea Nitrogen 16 mg/dL (9-23); Calcium 7.9 mg/dL (8.3-10.6); Calcium (Corrected) 8.4 mg/dL (8.5-10.1); Carbon Dioxide 24.8 mMol/L (20.0-31.0); Chloride 104 mMol/L (98-107); Estimated Creatinine Clearance 61.7 mL/min (>60); Globulin 3.2 gm/dL (2.3-3.5); Glucose 191 mg/dL (74-106); Magnesium 1.6 mg/dL (1.6-2.6); Osmolality,Calculated 274 (275-295); Phosphorous 3.1 mg/dL (2.4-5.1); Potassium 3.9 mMol/L (3.4-5.1); Sodium 134 mMol/L (136-145); Total Protein 6.6 gm/dL (5.7-8.2); Troponin I < 0.020 ng/mL (0.0-0.045); eGFR > 60 See Note
[2024-07-13 10:20] LABS: Slide Review Platelets confirmed
[2024-07-13] MEDS: INSULIN LISPRO (AdmeLOG) 1 UNIT/0.01 ML UNIT SC ×2 (11:33→20:43)
--- NOTE | 2024-07-13 11:46 | PD.SURCONS ---
HPI Consult details Consult date: 07/13/24 Reason for consultation narrative: The patient was seen in consultation because of low ejection fraction on the gallbladder with a HIDA scan History of present illness: History of present illness revealed that the patient has come to the hospital with GI bleeding. He also has history of recurrent GI bleeding. Patient had both hematemesis and melena at this time but his hemoglobin has not dropped significantly. Patient was treated for the same problem in 2020 by the graffiti cleaner here with banding of the esophageal varices. Patient abdominal pain was mostly in the epigastric region and some to the left upper quadrant. Patient does not know any history of gallstones in him. The previous evaluation with ultrasound was negative in 2022. At the present time after the banding and stopping of the GI bleed patient is feeling very well. He denies having any ascites. Past Medical History Past Medical History NEUROLOGIC: Negative Neurological Disorders or Seizures CARDIAC: Positive Cardiac Disorders, Hypercholesterolemia and Hypertension; Negative Congestive Heart Failure RESPIRATORY: Negative Chronic Obstructive Pulmonary Disease (COPD) or Asthma GASTROINTESTINAL: Positive Gastrointestinal Disorders, Cirrhosis, Esophageal Varices and Ulcerative Colitis GENITOURINARY: Positive Genitourinary Disorders and Renal Disease REPRODUCTIVE: Negative Breast Cancer MUSCULOSKELETAL: Positive Musculoskeletal Disorders and Arthritis ENDOCRINE: Positive Endocrine Disorders and Diabetes Mellitus Type 2; Negative Diabetes Mellitus Type 1 HEMATOLOGIC: Positive Blood Disorders and Anemia; Negative Sickle Cell Disease OTHER HISTORY: Positive Blood Transfusions; Negative Blood Transfusion Reaction, Anesthesia Reactions or Breast Cancer Family History FAMILY HISTORY: Positive Family Cardiac Disorders and Family Anesthesia Reaction Surgical History SURGICAL: Positive Abdominal Surgery and Bowel Surgery OTHER SURGICAL HX: Diabetes mellitus type 2 Social History SMOKING STATUS: Never smoker SECOND HAND EXPOSURE: No SUBSTANCE USE: does not use (Denied) Meds Home Medications and Allergies Home Medications ?Medication ?Instructions ?Recorded ?Confirmed ?Type metformin 500 mg tablet 500 mg PO BIDWMEAL 05/12/21 07/08/24 History sitagliptin phosphate 100 mg 100 mg PO QDAY 05/12/21 07/08/24 History tablet (Januvia) Allergies Allergy/AdvReac Type Severity Reaction Status Date / Time No Known Allergies Allergy Unknown Verified 07/07/24 16:54 Exam Vital Signs Temp Pulse Resp BP Pulse Ox O2 Del Method O2 Flow Rate 98.5 F 70 13 114/68 97 Room Air 3 07/13/24 08:00 07/13/24 08:12 07/13/24 08:00 07/13/24 08:12 07/13/24 08:00 07/13/24 08:00 07/11/24 12:00 Narrative Exam Physical examination revealed a thin built male who only speaks [place]. He is 5 foot 5 inches tall weighing 145 pounds with BMI of 24.2. His vital signs this morning are normal Constitutional Constitutional: no acute distress Routine Abdominal Exam Comments: Examination of the abdomen showed upper midline surgical scar extending up to the umbilicus. This is due to the previous laparotomy in [place]. Patient clinically does not have ascites and his abdomen is scaphoid. Routine Rectal Exam Comments: Deferred because of the recent colonoscopy Results Results: Laboratory Laboratory Narrative: Patient's laboratory workup showed a hemoglobin which is stable around 10 g. I reviewed the report from the graffiti cleaner was banded esophageal varices and internal hemorrhoids Results: Imaging Imaging narrative: Patient had gallbladder ultrasound which showed possibly sludge. The HIDA scan showed ejection fraction of 10%. Assessment & Plan Additional Assessment Additional comments: Impression: Cirrhosis of the liver with history of recurrent GI bleed Anemia Diabetes mellitus Hepatitis C Hyperlipidemia Thrombocytopenia Plan Plan: Patient may have some abnormality on the ultrasound showing sludge. However the HIDA scan performed showed visualization of the gallbladder thus ruling out any acute cholecystitis. His ejection fraction is 10% normal being 35%. This ejection fraction is usually used in evaluation of the chronic right upper quadrant pain to see if there is a biliary dyskinesia. In this patient lack of symptoms of pain on the right side indicate no evidence of gallbladder disease. The poor ejection fraction is indicative of biliary dyskinesia. That is a chronic condition and has to be evaluated with the symptoms of biliary colic presented with this finding. Isolated ejection fraction that is poor do not indicate severe gallbladder disease. Moreover patient is at high risk for cholecystectomy which will most probably be done by open because of the upper abdominal scar. The risk of bleeding is a real concern on cirrhotic patients on this gentleman has both ascites and splenomegaly and esophageal varices and thrombocytopenia which all show severe liver disease. I therefore feel that the patient should not be operated now and could be evaluated in a tertiary Medical Center as an outpatient if he requires cholecystectomy. If the patient develops acute cholecystitis and the situation and septic then 1 can make a case for surgical intervention. Thank you very much
--- NOTE | 2024-07-13 15:02 | ESPR_ITS ---
Documentation for date of: 07/13/24 Subjective Subjective Interval history: Patient evaluated Hemoglobin hematocrit stable Exam Vital Signs Temp Pulse Resp BP Pulse Ox O2 Del Method O2 Flow Rate 97.7 F 63 16 114/63 99 Room Air 3 07/13/24 12:00 07/13/24 12:00 07/13/24 12:00 07/13/24 12:00 07/13/24 12:00 07/13/24 12:00 07/11/24 12:00 Objective Labs 07/13/24 08:25 07/13/24 08:25 Labs: Laboratory Results - last 24 hr 07/13/24 08:25 WBC 3.6 L D RBC 3.18 L Hgb 10.1 L Hct 28.2 L MCV 89 MCH 31.8 MCHC 35.8 RDW Std Deviation 43.2 Plt Count 43 L Neut % (Auto) 62 Lymph % (Auto) 19 [place] % (Auto) 14 H Eos % (Auto) 4 Baso % (Auto) 1 Neut # (Auto) 2.3 Lymph # (Auto) 0.7 L [place] # (Auto) 0.5 Eos # (Auto) 0.1 Baso # (Auto) 0.0 Immature Gran # (Auto) 0.01 H Absolute Nucleated RBC 0.00 Immature Gran % 0 Nucleated RBC % 0 Sodium 134 L Potassium 3.9 Chloride 104 Carbon Dioxide 24.8 Anion Gap 5 L BUN 16 Creatinine 1.0 Estim Creat Clear Calc 61.7 eGFR > 60 BUN/Creatinine Ratio 16 Glucose 191 H Calculated Osmolality 274 L Lactic Acid 1.0 Calcium 7.9 L Corrected Calcium 8.4 L Phosphorus 3.1 Magnesium 1.6 Total Bilirubin 1.0 D AST 60 H ALT 48 Alkaline Phosphatase 96 Troponin I < 0.020 Total Protein 6.6 Albumin 3.4 D Globulin 3.2 Albumin/Globulin Ratio 1.1 L Misc Test Result Platelets confirmed Impressions Impression: Esophageal variceal bleeding leading to esophageal variceal band ligation Gastritis Band ligation of the large internal hemorrhoids Continue to monitor CBC I agree with the Dr. Sonia Overton there is no indication for laparoscopic versus open cholecystectomy at the moment ABG Interpretation ABG results: 07/07/24 17:40 ABG pH 7.40 ABG pCO2 39 ABG pO2 75 L ABG HCO3 25 ABG O2 Saturation 96 ABG Base Excess 0 Assessment & Plan A&P Narrative # Acute GI bleed in the setting of melena and hematochezia with backdrop of chronic liver disease secondary to previous consumption of alcohal Plan Serial CBC IV Protonix Octreotide 50 mcg IV push loading dose and then 50 mcg/h Consent obtained for fiberoptic esophagogastroduodenoscopy with possible therapeutic intervention possible biopsy under intravenous moderate sedation Thank you very much for the opportunity to participate in the care of this patient Time Spent With Patient Time: Total time spent is greater than 50% in coordination of care (as documented) at patient's floor/unit and/or counseling patient:
[2024-07-13] MEDS: MECLIZINE HCL 25 MG TABLET PO (15:13)
--- NOTE | 2024-07-13 16:48 | PD.RESPRO ---
Documentation for date of: 07/13/24 Subjective Subjective Interval history: Patient was seen and examined at bedside. Spoke with the general surgeon Dr. Mcginnis and he recommended no surgical intervention as the patient now asymptomatic, and he recommended that if the patient started to experience abdominal pain again patient can be referred to a higher level of care facility as his condition complicated by liver cirrhosis. He recommended that patient was about to be discharged today however he was complaining of dizziness that stopped whenever he tried to stand up associated with right-sided chest pain increased with deep breath and radiated to the back of the neck. Denied any other neurological symptoms, orthostatic vitals were normal limits, EKG was normal, troponin was normal, chest x-ray was also normal. After evaluation patient reported that he had 2 episodes of bowel movement that was containing blood. We reached out to Dr. Sotomayor he recommended to keep the patient for 1 more day to monitor his blood level on discharge tomorrow if clinically stable. Exam Vital Signs Temp Pulse Resp BP Pulse Ox O2 Del Method O2 Flow Rate 97.5 F 70 22 H 117/60 99 Room Air 3 07/13/24 16:00 07/13/24 16:00 07/13/24 16:00 07/13/24 16:00 07/13/24 16:00 07/13/24 16:00 07/13/24 16:00 Narrative Exam GEN: AOx3, able to speak full sentences HEENT: NC/AC, no nystagmus, oral mucosa moist, neck supple CVS: RRR, S1-S2 present, no murmurs appreciated RESP: CTAB GI: soft,non distended, non tender, NBS MSK: able to move all 4 limbs, no lower extremity edema SKIN: warm and dry LINUX ADMINISTRATOR: CN II-XII and Sensation grossly intact. No focal neurological deficit. Objective Labs 07/13/24 08:25 07/13/24 08:25 Labs: Laboratory Results - last 24 hr 07/13/24 08:25 WBC 3.6 L D RBC 3.18 L Hgb 10.1 L Hct 28.2 L MCV 89 MCH 31.8 MCHC 35.8 RDW Std Deviation 43.2 Plt Count 43 L Neut % (Auto) 62 Lymph % (Auto) 19 [place] % (Auto) 14 H Eos % (Auto) 4 Baso % (Auto) 1 Neut # (Auto) 2.3 Lymph # (Auto) 0.7 L [place] # (Auto) 0.5 Eos # (Auto) 0.1 Baso # (Auto) 0.0 Immature Gran # (Auto) 0.01 H Absolute Nucleated RBC 0.00 Immature Gran % 0 Nucleated RBC % 0 Sodium 134 L Potassium 3.9 Chloride 104 Carbon Dioxide 24.8 Anion Gap 5 L BUN 16 Creatinine 1.0 Estim Creat Clear Calc 61.7 eGFR > 60 BUN/Creatinine Ratio 16 Glucose 191 H Calculated Osmolality 274 L Lactic Acid 1.0 Calcium 7.9 L Corrected Calcium 8.4 L Phosphorus 3.1 Magnesium 1.6 Total Bilirubin 1.0 D AST 60 H ALT 48 Alkaline Phosphatase 96 Troponin I < 0.020 Total Protein 6.6 Albumin 3.4 D Globulin 3.2 Albumin/Globulin Ratio 1.1 L Misc Test Result Platelets confirmed ABG Interpretation ABG results: 07/07/24 17:40 ABG pH 7.40 ABG pCO2 39 ABG pO2 75 L ABG HCO3 25 ABG O2 Saturation 96 ABG Base Excess 0 Quality Measures Quality Measures none Advance care planning discussed with:: patient Assessment & Plan Assessment Current Active Medications: Generic Name Dose Route Start Last Admin Trade Name Freq PRN Reason Stop Dose Admin Acetaminophen 650 mg 07/07/24 21:49 Acetaminophen 325 Mg Tablet PO 08/06/24 21:48 Q6H PRN PAIN OR FEVER > 101 Dextrose 25 ml 07/07/24 21:49 Dextrose 50%-Water Inj 50 Ml Syringe IV 08/06/24 21:48 Q15MIN PRN BG 50-70 responsive npo pt Dextrose 50 ml 07/07/24 21:49 Dextrose 50%-Water Inj 50 Ml Syringe IV 08/06/24 21:48 Q15MIN PRN BG <50 OR BG <70 & pt unresponsive Glucagon 1 mg 07/07/24 21:49 Glucagon Inj 1 Mg Vial IM Q15MIN PRN BG <70, and no IV access Piperacillin Sod/Tazobactam 100 mls @ 200 mls/hr 07/12/24 07:36 07/13/24 11:53 Sod 4.5 gm/ Sodium Chloride IV 07/19/24 07:35 200 mls/hr Q6HR JEAN Administration Insulin Human Lispro 0 unit 07/13/24 07:30 07/13/24 11:33 Insulin Lispro (Admelog) 1 Unit/0.01 Ml Unit SC 08/12/24 07:29 1 unit ACHS JEAN Administration Protocol Meclizine HCl 25 mg 07/13/24 16:47 Meclizine Hcl 25 Mg Tablet PO 08/12/24 16:46 TID PRN DIZZINESS Ondansetron HCl 4 mg 07/07/24 21:49 07/11/24 19:38 Ondansetron Inj 2 Mg/Ml Inj 2 Ml IV 08/06/24 21:48 4 mg Q6H PRN Administration NAUSEA OR VOMITING Protocol Pantoprazole Sodium 40 mg 07/10/24 21:00 07/13/24 08:11 Pantoprazole Inj 40 Mg Vial IVP 08/09/24 20:59 40 mg BID JEAN Administration Plan A 64-year-old male patient with past medical history of diabetes, cirrhosis secondary to hep C, history of laparotomy, was brought to the ED because of hematemesis and melena. Patient was admitted for management of acute upper and lower GI bleed. #Acalculous cholecystitis Patient has been having abdominal pain, more towards right upper quadrant Underwent abdominal ultrasound, suggestive of acalculous cholecystitis Underwent HIDA scan, shows ejection fraction of 10% Antibiotics switched to IV Zosyn will continue Zosyn till tomorrow before discharge Blood cultures obtained General surgery consulted, recommended that the patient asymptomatic at this time, if patient has recurrent symptoms should be transferred to a higher level of care facility secondary to has cirrhosis. # Lower GI bleed #Esophageal varices, GII #Colonopathy DDx variceal bleed vs peptic ulcer disease Patient has history of cirrhosis and hepatitis C, noted distended varices on CT scan the patient also has history of taking diclofenac for the past couple of weeks for pain. Patient has prior history of variceal banding couple years back. 1 PRBC ordered by ER. CT scan of the abdomen showed diffuse wall thickening of the colon and small intestine colonopathy and idiopathic with mesenteric and preaortic lymphadenopathy Grade 2 esophageal varices, banded Colonoscopy shows internal hemorrhoids which were banded with 3 bands, and moderate diverticulosis, no diverticular bleed Continues to have a stable hemoglobin Today's hemoglobin is stable at 11.1, will repeat however patient reported episodes of bowel movement that contains blood. Plan: ?Hemoglobin and hematocrit at 9 PM ? Daily CBC ? Octreotide drip completed ? Protonix 40 mg twice daily IV ? GI following, appreciate recs #Dizziness Patient reported frequent episodes of dizziness when he stands up from lying flat. He felt the room spinning however he denied any tinnitus, double vision, vomiting, weakness, tingling or numbness. He reported mild right-sided chest pain. Chest x-ray came back negative, EKG was negative for any arrhythmia or ischemic changes, troponin within normal limits, orthostatic vitals normal Plan ? Meclizine 25 mg 3 times daily as needed as needed for dizziness ? Follow-up with your PCP within 1 week from discharge #History of decompensated cirrhosis #Hep C, chronic #Elevated liver enzymes, improving Patient has history of hepatitis C virus, reportedly partially treated, features of decompensated cirrhosis such as, Ascites splenomegaly and thrombocytopenia. Despite elevated serum ammonia levels patient is A&O x 3. No ascites, hepatic encephalopathy, normal coagulopathy panel AST ALT improving Patient has hep C antibody positive, HCVRNA 8.82 million Plan: ? Will recommend patient follow-up in outpatient settings regarding his hepatitis C treatment as his liver exam keep elevated persistently ? Trend PT and INR #Acute blood loss anemia #Thrombocytopenia Likely blood loss anemia in the setting of GI bleed Hemoglobin 11.1 today Platelets 53 Plan: ?Trend with CBC, PT and INR #Type 2 diabetes mellitus A1c of 7 Plan: ? Sliding scale insulin ? Hypoglycemic protocol in place ? Blood sugar checks with meals #History of hypertension Blood pressure was soft today, received 25 g of albumin infusion, holding home medications Disposition: Telemetry DVT prophylaxis: SCD GI prophylaxis: Protonix 40 mg IV twice daily Diet: N.p.o. for HIDA, will resume diet after CODE STATUS: Full Attending Provider Attestation/Addendum I attest that I was physically present for the evaluation, physical examination, lab and imaging review of the patient with the residents. I discussed the case with the residents and agree with the findings and plans of care as documented above. Giancarlo Santana MD
[2024-07-13 20:37] LABS: Hematocrit 25.3 % (41.0-53.0); Hemoglobin 9.1 g/dL (13.5-16.0)
--- NOTE | 2024-07-13 23:59 | PC.NURSE ---
MD Garcia informed that patient's HR is bradycardic 53-55. I assessed patient and he is not complaining of any chest pain or dizziness. He does report feeling weak. BP is 98/49. No new orders given by . said to monitor patient
[2024-07-14] VITALS: BP 98/49; PULSE 56; PULSE 57; RESP 13; TEMP 36.5; O2SAT 97
[2024-07-14 04:00] VITALS: BP 101/56; PULSE 56; PULSE 70; RESP 13; TEMP 36.7; O2SAT 97
[2024-07-14] MEDS: PIPER/TAZO INJ 4.5 GM in SODIUM CHLORIDE 0.9% (POP) 100 ML IV (05:14)
[2024-07-14 05:34] LABS: Basophils % (Auto) 0 % (0-2.5); Eosinophils # (Auto) 0.2 Thou/mm3 (0.0-0.5); Eosinophils % (Auto) 5 % (0-10); Hematocrit 24.8 % (41.0-53.0); Hemoglobin 8.9 g/dL (13.5-16.0); Immature Granulocytes % (Auto) 0 % (0-0); Immature Granulocytes Auto 0.01 Thou/mm3 (0.00-0.00); Lymphocytes # (Auto) 0.8 Thou/mm3 (1.0-4.8); Lymphocytes % (Auto) 27 % (10-50); Mean Corpuscular HGB Conc 35.9 g/dl (31.0-37.0); Mean Corpuscular Hemoglobin 31.8 pg (25.0-35.0); Mean Corpuscular Volume 89 fL (80-100); Monocytes # (Auto) 0.5 Thou/mm3 (0.0-0.8); Monocytes % (Auto) 17 % (0-12); Neutrophils # (Auto) 1.6 Thou/mm3 (1.8-7.7); Neutrophils % (Auto) 52 % (37-80); Nucleated Red Blood Cell % 0 /100 WBC (0); White Blood Count 3.2 Thou/mm3 (3.8-10.6)
[2024-07-14 05:54] LABS: Alanine Aminotransferase 43 U/L (10-49); Albumin, Serum 2.9 gm/dL (3.4-4.8); Alkaline Phosphatase 87 U/L (46-116); Anion Gap 6 (7-16); Aspartate Amino Transferase 54 U/L (0-34); BUN/Creatinine Ratio 19 Ratio (12-20); Bilirubin,Total 0.6 mg/dL (0.3-1.2); Blood Urea Nitrogen 15 mg/dL (9-23); Calcium 7.7 mg/dL (8.3-10.6); Calcium (Corrected) 8.6 mg/dL (8.5-10.1); Carbon Dioxide 26.5 mMol/L (20.0-31.0); Chloride 107 mMol/L (98-107); Creatinine (Component) 0.8 mg/dL (0.6-1.3); Estimated Creatinine Clearance 77.1 mL/min (>60); Glucose 100 mg/dL (74-106); Osmolality,Calculated 278 (275-295); Potassium 3.7 mMol/L (3.4-5.1); Sodium 139 mMol/L (136-145); Total Protein 5.9 gm/dL (5.7-8.2); eGFR > 60 See Note
[2024-07-14 06:00] VITALS: BMI 23.1
[2024-07-14 06:32] LABS: Platelet Count 44 Thou/mm3 (140-440)
[2024-07-14 06:52] LABS: Slide Review Platelets confirmed
[2024-07-14 08:00] VITALS: BP 100/58; PULSE 64; PULSE 72; RESP 14; TEMP 36.9; O2SAT 98
[2024-07-14] MEDS: PANTOPRAZOLE INJ 40 MG VIAL IVP (08:39)
--- NOTE | 2024-07-14 11:23 | PD.RESDS ---
Planned Discharge Date 07/14/24 DS: Providers Provider Date of admission: 07/07/24 20:44 Primary care physician: Physician No Primary/Family Admitting Provider: Lawrence Rivera MD Attending Provider on Admission: Giancarlo Santana MD Consults: 07/07/24 17:09 Consult to Gastroenterology Stat Comment: Upper GI bleed Consulting Provider: Kaitlin Sotomayor 07/07/24 23:27 Health Equity Referral - Knowledge Deficit Routine Comment: Positive screening for knowledge deficit needs. 07/07/24 23:28 Referral Registered Dietitian Routine Comment: 07/12/24 07:35 Consult to General Surgery Urgent Comment: Acalculous cholecystitis Consulting Provider: Stanley Dixon 07/13/24 08:13 Referral Physical Therapy Routine Comment: Physician Instructions: Attending Provider on DC: Giancarlo Santana MD Discharging Provider: Giancarlo Santana MD DS: Diagnosis Problem List Completed Was Problem List Reviewed/Reconciled?: Yes Hospital Course Hospital Course Hospital course: Ravi is a 64-year-old male with past medical history of diabetes, cirrhosis, hepatitis C, history of laparotomy, who was admitted to [facility] on July 07, 2024 for GI bleed and esophageal varices bleed. While in the ED, patient was noted to be tachycardiac, heart rate 127, respiratory rate of 19, with unremarkable blood pressure. Patient was worked up once found to have hemoglobin 11.3 and platelets of 18, elevated transaminases and ammonia. CT imaging was done which showed cirrhosis and ascites, significant splenomegaly as well as varices. Patient was given 1 PRBC transfusion and was started on IV octreotide drip, given Protonix loading dose 80 mg, Rocephin and vitamin K. Nasogastric tube was placed attached to suction, which contains dark red blood in aspirate. Medicine was consulted and patient was admitted to the floors. While patient was on the floors, patient had EGD by gastroenterology, Dr. Sotomayor, which showed grade 2 esophageal varices which were banded. Patient also had a colonoscopy which showed internal hemorrhoids which were also banded. Patient also was complaining of abdominal pain while admitted, had HIDA scan done which showed reduced ejection fraction of gallbladder roughly 10%. General surgery was consulted for evaluation of cholecystectomy, however due to low evidence of cholecystitis at the time, general surgery recommended to not have patient have cholecystectomy as he is also a high risk procedure and to medically manage. Patient was also given some meclizine as he was experiencing some dizziness. He does not have to follow-up with his GI however it was recommended for him to follow-up with his primary care doctor. We continued to prescribe Protonix, 40 mg twice a day. Discharge Instructions: Take medicines as prescribed You will need to follow up with your PCP within one week of discharge You do not need to follow up with Dr. Sotomayor at this time See your PCP if you need to be referred to a [facility] in the future Take Meclizine 25 mg by mouth as needed for dizziness Continue taking Protonix as prescribed We are stopping your metoprolol at this time because your blood pressure is soft Return to ER if your symptoms return or worsen Problem List: #Acalculous cholecystitis #Lower GI bleed #Esophageal varices, GII #Colonopathy #Dizziness #History of decompensated cirrhosis #Hep C, chronic #Elevated liver enzymes, improving #Acute blood loss anemia #Thrombocytopenia #Type 2 diabetes mellitus #History of hypertension Discharge summary was reviewed with my attending Dr. Esther Dawson, PGY-1 Time Spent with Patient Time attestation: Total time spent providing and/or coordinating discharge services: Time spent: Less than 30 minutes Exam Vital Signs Temp Pulse Resp BP Pulse Ox O2 Del Method O2 Flow Rate 98.4 F 64 14 100/58 L 98 Room Air 3 07/14/24 08:00 07/14/24 08:00 07/14/24 08:00 07/14/24 08:00 07/14/24 08:00 07/14/24 08:00 07/13/24 16:00 Narrative Exam GEN: AOx3, able to speak full sentences HEENT: NC/AC, no nystagmus, oral mucosa moist, neck supple CVS: RRR, S1-S2 present, no murmurs appreciated RESP: CTAB GI: soft,non distended, non tender, NBS MSK: able to move all 4 limbs, no lower extremity edema SKIN: warm and dry CLINICAL RESOURCE COORDINATOR: CN II-XII and Sensation grossly intact. No focal neurological deficit. Discharge Plan Plan Patient Disposition: HOME (Self Care) Patient condition on transfer: Benefits outweigh risks Care Plan Goals: Discharge Instructions: Take medicines as prescribed You will need to follow up with your PCP within one week of discharge You do not need to follow up with Dr. Sotomayor at this time See your PCP if you need to be referred to a [facility] in the future Take Meclizine 25 mg by mouth as needed for dizziness Continue taking Protonix as prescribed We are stopping your metoprolol at this time because your blood pressure is soft Return to ER if your symptoms return or worsen Instrucciones para el jonh: Celebration los medicamentos seg?n lo prescrito. Deber? realizar danay batsheva de seguimiento con batista m?dico de cabecera dentro de danay semana despu?s del jonh. No necesita hacer danay batsheva de seguimiento con el Dr. Sotomayor en moriah momento. Consulte con batista m?dico de cabecera si necesita ser derivado a un gastroenter?logo en el futuro. Celebration 25 mg de meclizina por v?a oral seg?n sea necesario para el mareo. Contin?e tomando Protonix seg?n lo prescrito. Suspenderemos batista metoprolol en moriah momento debido a que batista presi?n arterial es baja. Regrese a urgencias si teo s?ntomas regresan o empeoran. Prescriptions/Referrals Prescriptions/Med Rec: New meclizine 25 mg tablet 25 mg PO BID PRN (Reason: dizziness) 5 Days Qty: 14 0RF Continued metformin 500 mg Tablet 500 mg PO BIDWMEAL Januvia 100 mg Tablet 100 mg PO QDAY dicyclomine 20 mg tablet 20 mg PO TID PRN (Reason: abdominal pain) Qty: 20 0RF Changed pantoprazole 40 mg tablet,delayed release (DR/EC) 40 mg PO BID 14 Days Qty: 0 0RF Discontinued metoprolol tartrate 25 mg tablet 12.5 mg PO BID Qty: 20 0RF diclofenac sodium 75 mg tablet,delayed release (DR/EC) 75 mg PO Q12H PRN (Reason: pain) Patient Comments: TAKE 1 TABLET BY MOUTH TWICE A DAY DIRECTED for knee pain Referrals: No Primary/Family,Physician [Primary Care Provider] - Patient/Caregiver Discharge Instructions Discharge Activity: activity as tolerated Education Materials: Long-Term Complications of Diabetes, Upper GI Endoscopy, Understanding Cirrhosis Print Language: Albanian Stand Alone Forms: Lary Award Info., Patient Portal Info Letter Discharge Order Discharge Orders: Discharge (Routine); Ordered 07/14/24 Ordered By: Felipe Dawson Quality Discharge Quality Measures VTE prophylaxis (SCDs) Attestestation MD Attestation I attest that I was physically present for the evaluation, physical examination, lab and imaging review of the patient with the residents. I discussed the case with the residents and agree with the findings and plans of care as documented above. Giancarlo Santana MD
[2024-07-14] MEDS: INSULIN LISPRO (AdmeLOG) 1 UNIT/0.01 ML UNIT SC (11:44)
[2024-07-14 12:00] VITALS: BP 106/59; PULSE 83; RESP 17; TEMP 36.7; O2SAT 97
--- NOTE | 2024-07-14 13:26 | ESPR_ITS ---
Documentation for date of: 07/14/24 Subjective Subjective Interval history: Late entry for the note Case discussed with internal medicine team Hemoglobin 8.9 today it was 9.1 yesterday practically stable Okay to discharge patient home to be followed by the primary care physician Exam Vital Signs Temp Pulse Resp BP Pulse Ox O2 Del Method O2 Flow Rate 98.1 F 83 17 106/59 L 97 Room Air 3 07/14/24 12:00 07/14/24 12:00 07/14/24 12:00 07/14/24 12:00 07/14/24 12:00 07/14/24 12:00 07/13/24 16:00 Objective Labs 07/14/24 05:14 07/14/24 05:14 Labs: Laboratory Results - last 24 hr 07/13/24 07/14/24 20:24 05:14 WBC 3.2 L RBC 2.80 L Hgb 9.1 L 8.9 L Hct 25.3 L 24.8 L MCV 89 MCH 31.8 MCHC 35.9 RDW Std Deviation 44.0 H Plt Count 44 L Neut % (Auto) 52 Lymph % (Auto) 27 [place] % (Auto) 17 H Eos % (Auto) 5 Baso % (Auto) 0 Neut # (Auto) 1.6 L Lymph # (Auto) 0.8 L [place] # (Auto) 0.5 Eos # (Auto) 0.2 Baso # (Auto) 0.0 Immature Gran # (Auto) 0.01 H Absolute Nucleated RBC 0.00 Immature Gran % 0 Nucleated RBC % 0 Sodium 139 Potassium 3.7 Chloride 107 Carbon Dioxide 26.5 Anion Gap 6 L BUN 15 Creatinine 0.8 Estim Creat Clear Calc 77.1 eGFR > 60 BUN/Creatinine Ratio 19 Glucose 100 D Calculated Osmolality 278 Calcium 7.7 L Corrected Calcium 8.6 Total Bilirubin 0.6 AST 54 H ALT 43 Alkaline Phosphatase 87 Total Protein 5.9 Albumin 2.9 L D Globulin 3.0 Albumin/Globulin Ratio 1.0 L Misc Test Result Platelets confirmed Impressions Impression: Acute GI bleed requiring band ligation of the esophageal varices and band ligation of the internal hemorrhoids Stable hemoglobin hematocrit Okay to discharge patient home to be followed by the PCP ABG Interpretation ABG results: 07/07/24 17:40 ABG pH 7.40 ABG pCO2 39 ABG pO2 75 L ABG HCO3 25 ABG O2 Saturation 96 ABG Base Excess 0 Assessment & Plan A&P Narrative # Acute GI bleed in the setting of melena and hematochezia with backdrop of chronic liver disease secondary to previous consumption of alcohal Plan Serial CBC IV Protonix Octreotide 50 mcg IV push loading dose and then 50 mcg/h Consent obtained for fiberoptic esophagogastroduodenoscopy with possible therapeutic intervention possible biopsy under intravenous moderate sedation Thank you very much for the opportunity to participate in the care of this patient Time Spent With Patient Time: Total time spent is greater than 50% in coordination of care (as documented) at patient's floor/unit and/or counseling patient:
== END 2024-07-14 12:30 | disposition home or self-care (01) | DRG 952 ==
LOC: SERX 18:21 → SERHOLD 21:03 → S2NX 22:51
PROVIDERS: Emergency Medicine; Specialist; Student in an Organized Health Care Education/Training Program; Admitting Provider Internal Medicine; Emergency Provider Emergency Medicine; Visit Provider Student in an Organized Health Care Education/Training Program
PROC: (CPT 43239; principal; 2024-07-08 20:00)
PROC: 0DJD8ZZ Inspection of Lower Intestinal Tract, Via Natural or Artificial Opening Endoscopic (ICD-10-PCS; CPT 45378; principal; 2024-07-10 20:15)
DX: K74.60 Unspecified cirrhosis of liver (principal); R16.1 Splenomegaly, not elsewhere classified; R18.8 Other ascites; D62 Acute posthemorrhagic anemia; E11.9 Type 2 diabetes mellitus without complications; I85.11 Secondary esophageal varices with bleeding; I10 Essential (primary) hypertension; B18.2 Chronic viral hepatitis C; K76.6 Portal hypertension; D69.6 Thrombocytopenia, unspecified; K57.31 Diverticulosis of large intestine without perforation or abscess with bleeding; E78.5 Hyperlipidemia, unspecified; I88.0 Nonspecific mesenteric lymphadenitis; K64.2 Third degree hemorrhoids; K81.9 Cholecystitis, unspecified; R57.8 Other shock; Z79.4 Long term (current) use of insulin
CPT/HCPCS: 36415; 36430; 36600; 71045; 74176; 74178; 76700; 78227; 80048; 80053; 80061; 80076; 81001; 82140; 82150; 82803; 83036; 83605; 83690; 83735; 84100; 84443; 84484; 85014; 85018; 85025; 85610; 85730; 86850; 86900; 86901; 86923; 87040; 93005; 96365; 96366; 96367; 96374; 96375; 99285; A4217; A4649; A9537; J0696; J1171; J1200; J1815; J2250; J2354; J2405; J2470; J2543; J2805; J3010; J3411; J3430; J3475; J3490; J7030; J7050; P9016; P9047; Q9967; A9270